=== PATIENT | female | born 1990 | race Caucasian/White ===

== ENCOUNTER → 2017-10-29 14:41 | Outpatient (CLI) | payer OTHER, SELFPAY ==
[2017-10-29 16:46] LABS: Thyroid Stim Hormone (TSH) 1.72 uIU/mL (0.358-3.74)
== END ==
PROVIDERS: Family Provider Family Medicine; PCP Family Medicine; Visit Provider Family Medicine
DX: E66.9 Obesity, unspecified (principal)
CPT/HCPCS: 36415; 84443

== ENCOUNTER → 2017-12-31 18:20 | Outpatient (CLI) | payer OTHER, SELFPAY ==
[2018-01-06 11:33] LABS: HPV Reflexed? NOT INDICATED
== END ==
PROVIDERS: Family Provider Family Medicine; PCP Family Medicine; Visit Provider Obstetrics & Gynecology
DX: Z12.4 Encounter for screening for malignant neoplasm of cervix (principal)
CPT/HCPCS: 88175; G0145

== ENCOUNTER → 2019-05-21 | Outpatient (CLI) | payer OTHER, SELFPAY ==
[2015-03-01 09:49] VITALS: BMI 33.7
[2019-05-26 09:52] LABS: HPV Reflexed? NOT INDICATED
== END | disposition home or self-care (01) ==
LOC: LABSPEC 13:53
PROVIDERS: Family Provider Family Medicine; PCP Family Medicine; Referring Provider Obstetrics & Gynecology; Visit Provider Obstetrics & Gynecology
DX: Z12.4 Encounter for screening for malignant neoplasm of cervix (principal)
CPT/HCPCS: 87624; 88175; G0145

== ENCOUNTER → 2019-07-08 14:00 | Outpatient (CLI) | payer OTHER, SELFPAY ==
[2019-07-08 14:13] LABS: Bacteria 0 SEEN /hpf (None Seen); Mucous, Urine 0 SEEN /hpf (<or=2+); Red Blood Cells-Urine 0 SEEN /hpf (0-5); White Blood Cells 0 SEEN /hpf (0-5)
[2019-07-08 14:26] LABS: Color, Urine Yellow (Yellow); Glucose, Dipstick Normal (Normal); Ketone-Dipstick Negative (Negative); Leukocyte Esterase-Dipstick Negative /ul (Negative); Nitrite-Dipstick Positive (Negative); Occult Blood-Urine Negative /ul (Negative); Protein-Dipstick Negative (Negative); Specific Gravity, Urine 1.005 (1.002-1.030); Urine Bilirubin Dipstick Negative (Negative); Urine Clarity Clear (Clear); Urine Urobilinogen Normal (Normal)
[2019-07-08 14:31] LABS: hCG Titer Quant., Serum < 1 mIU/mL (1-3)
[2019-07-08 14:41] LABS: Squamous Epithelial Cells - UA 0-5 SEEN /hpf (5-10)
== END ==
PROVIDERS: Family Provider Family Medicine; PCP Family Medicine; Visit Provider Advanced Practice Midwife
DX: O03.9 Complete or unspecified spontaneous abortion without complication (principal); R30.0 Dysuria
CPT/HCPCS: 36415; 81001; 84702; 87086; 87088

== ENCOUNTER → 2019-10-29 | Outpatient (CLI) | payer OTHER, SELFPAY ==
[2019-10-29 19:39] LABS: Chlamydia Trachomatis by PCR Negative (Negative); Neisserai gonorrhoeae by PCR Negative (Negative); Probe Check PASS; Sample Adequacy Control PASS; Specimen Processing Control PASS
== END | disposition home or self-care (01) ==
PROVIDERS: PCP Family Medicine; Referring Provider Obstetrics & Gynecology; Visit Provider Obstetrics & Gynecology
DX: Z11.3 Encounter for screening for infections with a predominantly sexual mode of transmission (principal)
CPT/HCPCS: 87491; 87591

== ENCOUNTER → 2019-11-24 11:43 | Outpatient (CLI) | payer SELFPAY ==
[2015-03-01 09:49] VITALS: BMI 33.7
[2019-11-24 13:48] LABS: Color, Urine Straw (Yellow); Glucose, Dipstick Normal (Normal); Ketone-Dipstick Negative (Negative); Leukocyte Esterase-Dipstick Negative /ul (Negative); Nitrite-Dipstick Negative (Negative); Occult Blood-Urine Negative /ul (Negative); Protein-Dipstick Negative (Negative); Urine Bilirubin Dipstick Negative (Negative); Urine Clarity Clear (Clear); Urine Urobilinogen Normal (Normal); Urine pH 6.5 (5.0 - 8.0)
[2019-11-24 13:50] LABS: Absolute Lymphocyte Count 2.53 X10^3/uL (0.83-4.51); Absolute Neutrophil Count 7.2 X10^3/uL (2.0-7.7); Basophil# 0.05 X10^3/uL; Basophil% 0.5 % (0-1); Eosinophil# 0.09 X10^3/uL; Eosinophils% 0.9 % (0-5); Hematocrit 39.4 % (37-47); Hemoglobin 13.3 g/dL (12.0-15.0); Lymphocyte # 2.53 X10^3/ul (4.0); Lymphocyte % 24.4 % (19-41); Mean Corp Hgb Conc 33.8 g/dL (32-36); Mean Corpuscular Volume 94.7 fL (81-99); Mean Platelet Vol. 13.8 fl (6.2-12.0); Monocyte# 0.53 X10^3/uL; Monocyte% 5.1 % (0-10); NRBC Flagged by Analyzer 0 % (0-5); Neutrophil # 7.15 X10^3/uL (2.7-7.7); Neutrophil % 68.7 % (47-70); Platelet Count 154 K/mm3 (150-450); RBC Distribution Width CV 11.8 % (11.6-14.6); RBC Distribution Width SD 40.6 fl (35.1-43.9); Red Blood Count 4.16 M/mm3 (4.2-5.4); White Blood Count 10.4 K/mm3 (4.4-11.0)
[2019-11-24 14:17] LABS: Thyroid Stim Hormone (TSH) 1.41 uIU/mL (0.358-3.74)
[2019-11-25 01:06] LABS: Prenatal RPR NONREACTIVE (NONREACTIVE)
[2019-11-25 10:16] LABS: HIV - WCH Non-Reactive (Nonreactive); Hepatitis B Surface Antigen Non-Reactive (Nonreactive); Hepatitis C Antibody Non-Reactive (Nonreactive); Rubella IgG 42.5 IU/mL
== END ==
PROVIDERS: PCP Family Medicine; Visit Provider Obstetrics & Gynecology
DX: Z34.81 Encounter for supervision of other normal pregnancy, first trimester (principal)
CPT/HCPCS: 36415; 81002; 84443; 85025; 86703; 86762; 86803; 87340

== ENCOUNTER → 2020-04-05 | Outpatient (CLI) | payer SELFPAY ==
[2015-03-01 09:49] VITALS: BMI 33.7
[2020-04-05 13:16] LABS: Hematocrit 36.2 % (37-47); Hemoglobin 11.9 g/dL (12.0-15.0); Mean Corp Hgb Conc 32.9 g/dL (32-36); Mean Corpuscular Volume 100.3 fL (81-99); Mean Platelet Vol. 13.9 fl (6.2-12.0); Platelet Count 142 K/mm3 (150-450); RBC Distribution Width SD 46.9 fl (35.1-43.9); Red Blood Count 3.61 M/mm3 (4.2-5.4); White Blood Count 10.7 K/mm3 (4.4-11.0)
[2020-04-05 13:22] LABS: Glucose Challenge Gest 1H 50g 118 mg/dL (70-140)
== END | disposition home or self-care (01) ==
LOC: WOBLAB 09:56
PROVIDERS: PCP Family Medicine; Visit Provider Obstetrics & Gynecology
DX: Z34.83 Encounter for supervision of other normal pregnancy, third trimester (principal)
CPT/HCPCS: 36415; 82950; 85027

== ENCOUNTER → 2020-04-18 17:48 | Outpatient (CLI) | payer MEDICARE, OTHER, SELFPAY | PROVIDERS: PCP Family Medicine; Visit Provider Obstetrics & Gynecology | DX: Z11.59 Encounter for screening for other viral diseases (principal) | CPT/HCPCS: 87635; G2023; U0003 ==

== ENCOUNTER → 2020-05-31 | Outpatient (CLI) | payer SELFPAY | END | disposition home or self-care (01) | PROVIDERS: PCP Family Medicine; Visit Provider Obstetrics & Gynecology | DX: Z36.85 Encounter for antenatal screening for Streptococcus B (principal) | CPT/HCPCS: 87081 ==

== ENCOUNTER 2020-06-22 07:05 | Inpatient (IN) | payer SELFPAY ==
[2015-03-01 09:49] VITALS: BMI 33.7
[2020-06-22] VITALS (24 sets, daily range): BP systolic 81–129; BP diastolic 43–82; PULSE 58–96; RESP 16; TEMP 36.3–37.5; O2SAT 97–99; BMI 34.5
[2020-06-22] MEDS: Lactated Ringers 1,000 ML 50 ML IV (07:25)
[2020-06-22] MEDS: Oxytocin 30 units/NS 500 ml 30 UNITS/500 ML IV.SOLN IV (07:45)
[2020-06-22 08:19] LABS: Absolute Lymphocyte Count 2.23 X10^3/uL (0.83-4.51); Basophil# 0.03 X10^3/uL; Basophil% 0.3 % (0-1); Eosinophils% 0.9 % (0-5); Hemoglobin 11.9 g/dL (12.0-15.0); Lymphocyte # 2.23 X10^3/ul (4.0); Lymphocyte % 20.1 % (19-41); Mean Corpuscular Hgb 33.1 pg (27.0-32.0); Mean Corpuscular Volume 97.5 fL (81-99); Mean Platelet Vol. 14.1 fl (6.2-12.0); Monocyte# 0.66 X10^3/uL; Monocyte% 5.9 % (0-10); NRBC Flagged by Analyzer 0 % (0-5); Neutrophil # 8.04 X10^3/uL (2.7-7.7); Neutrophil % 72.3 % (47-70); Platelet Count 126 K/mm3 (150-450); RBC Distribution Width CV 13.1 % (11.6-14.6); RBC Distribution Width SD 46.5 fl (35.1-43.9); Red Blood Count 3.59 M/mm3 (4.2-5.4); White Blood Count 11.1 K/mm3 (4.4-11.0)
--- NOTE | 2020-06-22 08:57 | HP.PCM_ITS ---
History and Physical Date of Admission: 06/22/20 [facility] [place] ANTEPARTUM RECORD - HISTORY AND PHYSICAL (06/22/2020) Name: BARBARA BARROSO History of This : This is a 29-year-old who presents for elective induction at 39+ weeks gestation. care has otherwise been uneventful. OB Physician: ORBERT [facility]'s Physician: [facility] ...................................................................... : 1990 Age: 29 Address: [address] [place] [address] Phone: (h) [phone] (o) [phone] Insurance Carrier: Emergency Contact: OSVALDO RED - SISTER [phone] ...................................................................... Final YARELY: 06/26/20 By Ultrasound: 9 weeks 2 days PARITY: (G-Total Pregnancies P-Fullterm,Premature,Induced AB,Spont AB, Ectopics, Multipl e,Living) YARELY CONFIRMATION: By LMP: 09/20/19 Initial Exam: 06/26/20 By First Ultrasound Exam: 06/26/20 Final YARELY: 06/26/20 OB PROBLEM LIST: Declines AFP and CF testing. COVID positive 04/18/20; sxs have resolved First cousin with Down Syndrome Prefers no epidural, but not opposed if needed ALLERGIES: Amoxicillin Hives and/or rash amoxicillin trihydrate Hives, rash NKDA MEDICATIONS: azithromycin 250 mg tablet 2 po today then 1 po daily fluoxetine 20 mg capsule One pill by mouth once a day One Daily 27 mg iron-800 mcg tablet daily SOCIAL HISTORY: Smoking - Never Alcohol Use - denies drinking Diet - moderate, balanced diet, caffeine < 2 drinks per day and lactose intolerant Lifestyle - Exercise - active work Employer - 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 Drug Use - denies use of street drugs Sexual Activity - Residence - lives with Place of - [place], [place] Hours Worked - 30 wk Spouse-Sig Other Name - Tigist Barroso Spouse-Sig Other Occupation - Family Farm Spouse-Sig Other Phone No - [phone] Children Name(s) - Abhijit(13), Joe(15) PRIOR DELIVERY HISTORY ____ DEL DATE GEST LAB WT LB WT OZ TYPE ANES LABOR TX Mar 13 39 8 8 3 Vag Epidural No Dec 09 40 5 8 3 Vag Epidural No ANTEPARTUM FLOW CHART VISIT GE RTC FU F F DE U U DATE WK MD WKS HT PN HR M SS BP ED WT DE GL D EF ST __ ____ ___ __ __ ___ __ __ __ ___ __ __ __ ___ __ 16 Sep 38 JMW 1 38 V + + 122/74 sl 220 - - 2+ 75 -2 09 May 37 JMW 1 37 V + + 126/80 sl 217 - - S 02 Sep 36 JMW 1 36 V + + 132/78 sl 215 tr - 2 50 -2 Apr JMW 3 33 + + 106/68 0 213 - - 08 Apr 25 JMW 4 28 + + 134/64 sl 209 tr - 11 Mar 22 JMW 4 24 + + 126/70 0 205 tr - 14 February 15 JMW 4 20 U+ O 124/76 0 200 - - Nov 07 JMW 4 on 119/77 0 191 - - ANTEPARTUM NOTE(S): Jun 14 2020: Ctxs-occas, Periodic pains in upper and lower abdomen Jun 07 2020: Ctxs-occas, Good FM May 31 2020: Alot of low soreness,Good FM,GBS Today May 10 2020: no complaints expressed Apr 05 2020: CBC, OGCT Today,Good FM,Feeling Well Mar 09 2020: Glucola/Instructions Given,Good FM,Feeling Well February 09 2020: Comp US -- Anterior Placenta Nov 24 2019: Intermittent nausea COMPREHENSIVE ANTEPARTUM NOTE(S): Jun 14 2020: Scheduled for Induction for 06/22 at 0700. Spoke with Lidia KAY. ЕКАТЕРИНА May 31 2020: Barbara reports a lot of soreness low in her abdomen recently, we discussed round ligament pains. Good FM. LARC form signed and GBS Today. ЕКАТЕРИНА May 10 2020: Barbara is here for a PNV. Good FM. No edema noticed. No complaints or concerns expressed. Informed about GBS and LARC at 36 week visit. 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 Reviewed FM perception w/Anterior placenta. Nov 24 2019: Barbara is here for her NOB visit at 9 w 2 d, she is a with an YARELY of 06/26/2020. , Shon, accompanies her today, and she seems to be supportive. They have two sons at home, both delivered by in 2012 and 2014. Past history updated. Barbara plans delivery at [facility], she prefers not to have an epidural (but is not opposed to one, if needed), and she will breastfeed. Office practice patterns reviewed, and she is aware of labs that will be collected today. She has been experiencing intermittent nausea, and states that she has vomited once. Reviewed measures that may help minimize nausea, including small frequent meals with protein included throughout the day and adequate water hydration of at least one gallon per 24 hours, also discussed Vitamin B6 50 mg twice a day and Unisom at bedtime. Barbara takes an OTC vitamin that contains DHA and states that she tolerates this well. Emergencies/danger signs to report, round ligament pain, reporting a suspected UTI, and common OTC medications approved/not approved for use during reviewed. Genetic Screen completed, she has a first cousin with Down Syndrome. AFP and CF testing declined, consent signed as such. Barbara is a lifelong non-smoker, and denies use of drugs or ETOH. She keeps active helping on the [employer] farm every day, and taking walks. Lifting restrictions for discussed. Water and dietary needs for reinforced, including caloric needs, recommended weight gain, limiting caffeine to one cup a day, and limiting empty calories. Printed guide for food safety during provided with review. Denies history of depression/anxiety. Barbara states that she understands all information provided during NOB visit, and has no questions following same. AW New Oct 29 2019: ok Oct 29 2019: Barbara presents here today for Missed Menses appointment. 28 y.o. G 3 P 2 non-smoker with history of regular menses and LMP of 12-23-19 lasting her average of 5-6 days. UPT mis positive today in our Office. Presents at 5 weeks 4 days with an approximate YARELY of 06-27-20. Denies spotting/bleeding thus far with brief review of danger signs and bleeding in . Currently taking an OTC Vitamin with Educational Materials given. History of all normal pap screenings from 2012 through 05/2019. Medication and Allergy lists up- dated. ЕКАТЕРИНА Jul 13 2019: Pt reports urethural pain and burning, and urinary frequency, urgency, and a sense of not being able completely empty her bladder. She took several pill from an old Macrobid rx two days ago, and several pills from an old Pyridium rx; she has had some unscheduled vaginal bleeding, now resolved, which she believes may have been an eary miscarriage. She denies cramping at any time. UA C sent today; HcG Quant < 1 today; Rx for Macrobid and Pyridium given, hygeine measures, fluids reviewed, pt may consider cranberry juice or tablets, and probiotic, albeit limited evidence for efficacy. Pt wants to activly attempt , reassured her it is safe to try at this time. Pt encouraged to call if s/s do not improve. - KVW Jul 08 2019: Barbara is being seen for folllow up visit. Pt called into triage today with bleeding and possible UTI. LMP 05-24-19. Pt bled for 7 days and then started bleeding 07-01-19 which was alot shorter. Pt is concerned this is a missed AB due to 3 tests done and were positive around 06-22-19. Pt has been having bladder spasms and burning with urination. Pt is taking Pyridium and 4 tabs of Macrobid from last UTI she had. Urine cx sent as well as quant drawn. Medicaitons and allergies are up to date. AM REVIEW OF SYSTEMS: GENERAL - Denies fever, or chills SKIN - Denies rash, new skin lesions, or change in moles EYES - Denies blurred vision, or change in visual acuity EARS - Denies ear pain, or difficulty hearing NOSE - Denies nasal congestion, discharge, or bleeding MOUTH - Denies sore throat, or difficulty swallowing NECK - Denies pain or swelling RESPIRATORY - Denies shortness of breath, cough, wheezing CARDIOVASCULAR - Denies palpitations, chest pain, orthopnea, PND, peripheral edema, syncope or claudication GASTROINTESTINAL - Denies nausea, vomiting, diarrhea, constipation, Denies abdominal pain, melena and or bright red blood GENITOURINARY - Denies dysuria, frequency of urination, urgency, or hesitancy MUSCULOSKELETAL - Denies joint or muscle pain, or back pain NEUROLOGICAL - Denies localized numbness, weakness, or tingling PSYCHIATRIC - Denies depression, anxiety, substance abuse or suicide attempts ENDOCRINE - Denies heat or cold intolerance, weight loss or gain, increasing thirst HEMATO-IMMUNOLOGIC - Denies easy bruising, bleeding, oral ulcerations or recurrent infections GENETICS SCREENING: Age 35+ years: No Thalassemia: No Neural Tube Defect: No Down Syndrome: Yes Cousin GLEN-SACHS: No Sickle Cell Disease: No Hemophilia: No Musc. Dystrophy: No Cystic Fibrosis: No-declines screening Valmy Chorea: No Mental Retardation: No Fragile X: No Other genetic: No Other defects: No SABs/still births: No Drugs since LMP: No INFECTION HISTORY: High risk AIDS: No High risk Hepatitis: No Exposed to TB: No Exposed to Herpes: No Rash/viral illness since LMP: No History of STD: No MENSTRUAL HISTORY: *Menses Amount/Duration: 5-6 DAYSMenses Regularity: RegularFrequency: monthlyMenarche (Age Onset): 13HCG+: 03/25/2012* PAST SUMMARY: PARITY: 1. Total Pregnancies............ 3 2. Full Term Pregnancies........ 2 3. Premature.................... 0 4. Abortions - Induced.......... 0 5. Abortions - Spontaneous...... 0 6. Ectopics..................... 0 7. Multiple Births.............. 0 8. Living Children.............. 2 PAST #1: Date of :.................. 12/04/12 Gestation Weeks:................ 40 Length of labor(hours):......... 5 Sex:............................ M Weight-lbs:............... 8 Weight-oz:................ 3 Type of Delivery:............... Vag Type of Anesthesia:............. Epidural Place of Delivery:.............. [facility] Treatment of Labor?:.... No Comment: IND. PAST #2: Date of :.................. 03/01/15 Gestation Weeks:................ 39 Length of labor(hours):......... 8 Sex:............................ M Weight-lbs:............... 8 Weight-oz:................ 3 Type of Delivery:............... Vag Type of Anesthesia:............. Epidural Place of Delivery:.............. [facility] Treatment of Labor?:.... No Comment: IOL PHYSICAL EXAMINATION General Appearence: 29 yo female in no acute distress Vital Signs: AF, VSS Heart: RRR without rubs or gallops Lungs: CTA x 2 Breasts: deferred Abdomen: gravid Pelvis: Cervix: 3/50, rupture membranes clear fluid Presentation: cephalic Station: -2 Fetus: Size: AGA Movement: present Heart: present Labs for : BARBARA BARROSO since 09/30/2019 ORDER DATEIN DESCRIPTION VALUE UNITS RANGE A+ COMMENT CULTURE, GROUP B STREPTOCOCCUS 05/31/20 NOTE Original Ordering Provider: Pablito Doherty SUZIE Culture No Group B Beta Streptococcus isolated. Reviewed by PABLITO CORONAVIRUS 19, THERESE SCREEN 04/18/20 NOTE Original Ordering Provider: DOMONIQUE Diamond COVID-19,THERESE Detected Not Detect This test was developed and its performance characteristics determined by [facility]. This test has not been FDA cleared or approved. This test has been authorized by FDA under an Emergency Use Authorization (EUA). This test is only authorized for the duration of time the declaration that circumstances exist justifying the authorization of the emergency use of in vitro diagnostic tests for detection of SARS-CoV-2 virus and/or diagnosis of COVID-19 infection under section 564(b)(1) of the Act, 21 U.S.C. 360bbb-3(b)(1), unless the authorization is terminated or revoked sooner. When diagnostic testing is negative, the possibility of a false negative result should be considered in the context of a patient's recent exposures and the presence of clinical signs and symptoms consistent with COVID-19. An individual without symptoms of COVID-19 and who is not shedding SARS-CoV-2 virus would expect to have a negative (not detected) result in this assay. TESTING PERFORMED AT [facility]. [address] [facility], [place] [address] ORIGINAL REPORT ON FILE IN LAB CONTAINS ADDITIONAL TEST SITE INFORMATION. Reviewed by PABLITO GLUCOSE CHALLENGE GEST 1H 50G 04/05/20 NOTE Original Ordering Provider: Pablito Doherty GLU GEST 50G 1H 118 mg/dL 70-140 Reviewed by PABLITO CBC-COMPLETE BLOOD CNT NO DIFF 04/05/20 NOTE Original Ordering Provider: Pablito Doherty WBC 10.7 K/mm3 4.4-11.0 RBC 3.61 M/mm3 4.2-5.4 L HGB 11.9 g/dL 12.0-15.0 L HCT 36.2 % 37-47 L MCV 100.3 fL 81-99 H MCH 33.0 pg 27.0-32.0 H MCHC 32.9 g/dL 32-36 RDW CV 13.0 % 11.6-14.6 RDW SD 46.9 fl 35.1-43.9 H PLT 142 K/mm3 150-450 L MPV 13.9 fl 6.2-12.0 H Reviewed by PABLITO HEPATITIS C ANTIBODY 11/24/19 NOTE Original Ordering Provider: Pablito Doherty HEPATITIS C AB Non-Reactive Nonreactive Non Reactive: < 0.8 Equivocal: >/= 0.8 to < 1.0 Reactive: >/= 1.0 The CDC recommends that a reactive/equivocal HCV antibody result be followed up by the HCV Nucleic Acid Amplification test ([id number]) Reviewed by JEOVANY HEPATITIS B SURFACE ANTIGEN 11/24/19 NOTE Original Ordering Provider: Pablito Doherty HEPB SURFACE AG Non-Reactive Nonreactive Reviewed by JEOVANY HIV - H 11/24/19 NOTE Original Ordering Provider: Pablito Doherty HIV - [facility] Non-Reactive Nonreactive Reviewed by JEOVANY RUBELLA IGG 11/24/19 NOTE Original Ordering Provider: Pablito Doherty RUBELLA IGG 42.5 IU/mL Antibody results Interpretation of Immune Status < 5 IU/ml Presumed Non-immune 5 - < 10 IU/ml Equivocal > or = 10 IU/ml Presumed Immune Reviewed by JEOVANY RPR 11/24/19 NOTE Original Ordering Provider: Pablito Doherty RPR NONREACTIVE NONREACTIVE Reviewed by JEOVANY T AND S-NO CHARGE W/PNP 11/24/19 Reason for Type AND Screen/Red Cells: Surgery? [facility]~[address] [place], [address]~ BLOOD TYPE GEL O POSITIVE N AB SCREEN GEL NEGATIVE N Reviewed by JEOVANY THYROID STIM HORMONE (TSH) 11/24/19 NOTE Original Ordering Provider: Pablito Doherty TSH 1.41 uIU/mL 0.358-3.74 Reviewed by JEOVANY jones CBC W/DIFF, AUTOMATED 11/24/19 NOTE Original Ordering Provider: Pablito Doherty WBC 10.4 K/mm3 4.4-11.0 RBC 4.16 M/mm3 4.2-5.4 L HGB 13.3 g/dL 12.0-15.0 HCT 39.4 % 37-47 MCV 94.7 fL 81-99 MCH 32.0 pg 27.0-32.0 MCHC 33.8 g/dL 32-36 RDW CV 11.8 % 11.6-14.6 RDW SD 40.6 fl 35.1-43.9 PLT 154 K/mm3 150-450 MPV 13.8 fl 6.2-12.0 H NEUT% 68.7 % 47-70 LY% 24.4 % 19-41 MONO% 5.1 % 0-10 EO% 0.9 % 0-5 BASO% 0.5 % 0-1 IM GRAN % 0.400 % 0.0-0.9 IG% - Immature Granulocytes (promyelocytes, myelocytes and metamyelocytes) > 1% indicates that a LEFT SHIFT is Present. ABSOLUTE NEUT 7.2 X10 3/uL 2.0-7.7 ABSOLUTE LYMPH 2.53 X10 3/uL 0.83-4.51 NRBC, FLAGGED 0 % 0-5 Reviewed by JEOVANY URINALYSIS, ROUTINE (DIPSTICK) 11/24/19 NOTE Original Ordering Provider: Pablito Doherty COLOR Straw Yellow CLARITY Clear Clear GLUCOSE, UR Normal mg/dl Normal BILIRUBIN URINE Negative mg/dL Negative KETONE UR Negative mg/dl Negative w SP.GR. DIPSTX 1.010 1.002-1.030 PH UR 6.5 5.0 - 8.0 PROT DIPSTX Negative mg/dl Negative UROBILI Normal mg/dl Normal w NITRITE UR Negative Negative OCCULT BLOOD-UR Negative /ul Negative LEUK ESTERASE Negative /ul Negative Reviewed by JEOVANY CT/NG [facility] BY PCR 10/29/19 NOTE Original Ordering Provider: Pablito Doherty CHLAM TRA PCR Negative Negative NG BY PCR Negative Negative Reviewed by PABLITO Impression /Plan: 39+ week intrauterine for elective Pitocin and rupture membrane induction. Preparations in progress for delivery.
[2020-06-22] MEDS: Lactated Ringers 500 ML 999 ML IV (12:13)
[2020-06-22] MEDS: Amnioinfusion- 0.9% NS 1,000 ML IV.SOLN. 200 ML INTRA-UTER (13:30)
[2020-06-22] MEDS: Oxytocin 30 units/NS 500 ml 30 UNITS/500 ML IV.SOLN 334 UNITS IV (14:16)
--- NOTE | 2020-06-22 14:25 | PCM.OPRPT ---
Vaginal Delivery Maternal Presentation: Elective Induction Method of Induction: Pitocin, Amniotomy Amniotic Membrane Rupture Type: Artificial Amniotic Fluid Description: Clear Final YARELY: 06/26/20 Final YARELY Source: US <20 weeks Gestational age: 39 Weeks and 3 Days Date of Procedure: 06/22/20 Pre-Operative Diagnosis: IUP Post-Operative Diagnosis: IUP Surgery/ Procedure Performed: Spontaneous Vaginal Delivery Type of Anesthesia: None Description of Procedure: Spontaneous vaginal delivery of a viable male with Apgars of 8/9 from an occiput anterior presentation with clear amniotic fluid and normal three-vessel placenta. No episiotomy or lacerations. Sponges okay. Delivery physician: Tommie Doherty MD. Presentation: Vertex Placental Delivery Description: Spontaneous Placenta Disposition: [facility] Cord Vessel Description: 3 Vessels Cord Entanglement: None Estimated Blood Loss: 250 cc A gender: Male (1 minute): 8 (5 minute): 9 Episiotomy Description: None Laceration: None Medications given after delivery: IV Pitocin Complications: None
--- NOTE | 2020-06-22 14:27 | DCINST_ITS ---
<Tommie Doherty - Last Filed: 06/22/20 14:27> Discharge Diet: No Restrictions Discharge Activity: May Shower, May Take a Tub Bath May resume sexual activity in: 4-6 weeks Additional Activity Instructions:: Nothing in the vagina for 4-6 weeks. You may return to work/school in 6 weeks. Call your doctor if you observe: Inability to urinate, Inability to have a bowel movement, Using more than one pad per hour Additional Instructions: If you experience any of the following, contact your healthcare provider. * Bleeding that soaks a pad every hour for 2 hours * Fever 100.4 or higher * Unrelieved incision or abdominal pain * Swelling, redness, discharge or bleeding from your incision or episiotomy site * Your incision begins to separate * Problems urinating (including inability to urinate or burning while urinating). * Visual changes * Severe headache * Flu-like symptoms * Pain or redness in one of both of your breasts * Pain, warmth, tenderness or swelling in your legs, especially the calf area * Frequent nausea and vomiting * Symptoms of depression or anxiety If you experience any of the following, call 911 or go to the nearest Emergency Room. * Chest pain * Problems breathing * Seizure activity * Partial or complete paralysis of a body part, slurred speech, weakness or drooping of the face, or a sudden inability to walk or hold your balance Allergies/Adverse Reactions: Allergies amoxicillin Adverse Reaction (Verified 12/28/14 15:59) Rash Medications to take at Discharge Vits [Prenatabs FA] 1 tablet PO DAILY 12/28/14 Mecobalamin [B12 Active] 1,000 mcg PO DAILY 06/22/20 Please Follow Up With: Tommie Doherty MD - [phone] When: Call to make an appointment with your doctor in 6 weeks. Primary Care Physician: Susu Dove MD [Primary Care Provider] - Test Results: Test results from this visit will be discussed in further detail at your follow- up appointment, if applicable. <Alex Flower - Last Filed: 06/23/20 08:12> Additional Instructions: If you experience any of the following, contact your healthcare provider. * Bleeding that soaks a pad every hour for 2 hours * Fever 100.4 or higher * Unrelieved incision or abdominal pain * Swelling, redness, discharge or bleeding from your incision or episiotomy site * Your incision begins to separate * Problems urinating (including inability to urinate or burning while urinating). * Visual changes * Severe headache * Flu-like symptoms * Pain or redness in one of both of your breasts * Pain, warmth, tenderness or swelling in your legs, especially the calf area * Frequent nausea and vomiting * Symptoms of depression or anxiety If you experience any of the following, call 911 or go to the nearest Emergency Room. * Chest pain * Problems breathing * Seizure activity * Partial or complete paralysis of a body part, slurred speech, weakness or drooping of the face, or a sudden inability to walk or hold your balance Test Results: Test results from this visit will be discussed in further detail at your follow- up appointment, if applicable.
[2020-06-22] MEDS: Ibuprofen 600 MG Tablet PO (15:37)
[2020-06-22] MEDS: 0.9% Saline Lock 10 ML Syringe IV (16:45)
[2020-06-22] MEDS: Acetaminophen 500 MG Tablet 1000 MG PO (20:09)
[2020-06-23] VITALS (10 sets, daily range): BP systolic 117–143; BP diastolic 63–74; PULSE 67–85; RESP 14–18; TEMP 36.2–36.8; O2SAT 95–96
[2020-06-23] MEDS: Acetaminophen 500 MG Tablet 1000 MG PO (06:39)
--- NOTE | 2020-06-23 08:10 | PCM.PN.OB ---
Subjective: No overnight complaints. Pain well controlled. Denies chest pain, shortness of breath, nausea vomiting. - Physical Exam Vitals/I&O's: Vital Signs Temp Pulse Resp BP Pulse Ox 97.4 F L 77 18 133/74 H 96 06/23/20 08:00 06/23/20 08:00 06/23/20 08:00 06/23/20 08:00 06/23/20 08:00 Oxygen Delivery Method Room Air Weight: 220 lb 7.396 oz Body Mass Index (BMI) 34.5 Intake and Output for Last 24 Hours 06/21/20 06/22/20 06/23/20 23:59 23:59 23:59 Intake Total 1593.30 / 1593.30 Output Total 1300 / 1300 Balance 293.30 / 293.30 General: Alert, Oriented x3, Cooperative, No apparent distress HEENT: Atraumatic, Normocephalic Oral: Moist Mucosa Neck: Supple Abdomen: Soft, Non Tender, Gravid - Fundus firm at umbilicus Psych/Mental Status: Normal Affect, Appropriate, Alert and oriented to time, place, person, mood and affect Laboratory Results 06/22/20 07:25: WBC 11.1 H, RBC 3.59 L, Hgb 11.9 L, Hct 35.0 L, MCV 97.5, MCH 33.1 H, MCHC 34.0, RDW Std Deviation 46.5 H, RDW Coeff of Adriana 13.1, Plt Count 126 L, MPV 14.1 H, Immature Gran % (Auto) 0.500, Neut % (Auto) 72.3 H, Lymph % (Auto) 20.1, [place] % (Auto) 5.9, Eos % (Auto) 0.9, Baso % (Auto) 0.3, Absolute Neuts (auto) 8.0 H, Absolute Lymphs (auto) 2.23, Nucleated RBC % 0 06/22/20 07:25: Blood Type O POSITIVE, Antibody Screen NEGATIVE Current Medications Acetaminophen (Tylenol) 1,000 mg PO Q8H PRN PRN PRN Reason: Pain Score 1-3/10 Last Admin: 06/23/20 06:39 Dose: 1,000 mg Documented by: Bisacodyl (Dulcolax) 10 mg RECTAL UD PRN PRN Reason: If no BM Dibucaine (Dibucaine) 1 applic TOPICAL TID PRN PRN; Protocol PRN Reason: Discomfort Hydrocortisone (Hytone) 1 applic TOPICAL TID PRN PRN; Protocol PRN Reason: Discomfort Ibuprofen (Motrin) 600 mg PO Q6H PRN PRN PRN Reason: Pain Score 1-3/10 Last Admin: 06/22/20 15:37 Dose: 600 mg Documented by: Influenza Virus Vaccine Quadrival (Flucelvax /Fluzone ) 0.5 ml IM .ONCE ONE Stop: 06/23/20 10:01 Methylergonovine Maleate (Methergine) 0.2 mg IM X1 PRN PRN Reason: Excess bleeding/uterine atony Ondansetron HCl (Zofran) 4 mg IV Q4H PRN PRN PRN Reason: Nausea Oxycodone HCl (Oxyir) 5 - 10 mg PO Q4H PRN PRN PRN Reason: Pain Score 4-10/10 Senna/Docusate Sodium (Senokot-S, Linda-Colace) 1 - 2 tablet PO DAILY PRN PRN PRN Reason: Constipation Simethicone (Mylicon) 80 mg PO PCHS PRN PRN Reason: Indigestion/Stomach pain Sodium Chloride () 5 - 15 ml IV UD PRN PRN Reason: SALINE FLUSH Last Admin: 06/22/20 16:45 Dose: 10 ml Documented by: Zolpidem Tartrate (Ambien (Generic)) 5 mg PO QHS PRN PRN PRN Reason: Insomnia Medical Necessity - Tobacco Use Smoking Status: Never smoker Assessment/Plan day 1. Pain well controlled. Breast-feeding. Undecided on control, considering progesterone only pill at visit. Okay to [place] home today
== END 2020-06-23 15:15 | disposition home or self-care (01) | DRG 807 ==
PROVIDERS: Admitting Provider Obstetrics & Gynecology; PCP Family Medicine; Visit Provider Obstetrics & Gynecology
DX: O80 Encounter for full-term uncomplicated delivery (principal); Z37.0 Single live birth; Z3A.39 39 weeks gestation of pregnancy
CPT/HCPCS: 59025; 59050; 85025; 86850; 86900; 86901; 99218; J7030; J7120; 90686; A4216; G0378

== ENCOUNTER → 2021-03-09 10:11 | Outpatient (CLI) | payer SELFPAY ==
[2020-06-22 07:17] VITALS: BMI 34.5
[2021-03-09 11:17] LABS: Absolute Lymphocyte Count 2.11 X10^3/uL (0.83-4.51); Basophil# 0.06 X10^3/uL; Basophil% 0.7 % (0-1); Eosinophil# 0.15 X10^3/uL; Eosinophils% 1.7 % (0-5); Hematocrit 37.5 % (37-47); Hemoglobin 12.7 g/dL (12.0-15.0); Lymphocyte # 2.11 X10^3/ul (0.83-4.51); Mean Corp Hgb Conc 33.9 g/dL (32-36); Mean Corpuscular Hgb 32.1 pg (27.0-32.0); Mean Corpuscular Volume 94.7 fL (81-99); Mean Platelet Vol. 12.5 fl (6.2-12.0); Monocyte# 0.45 X10^3/uL; Monocyte% 5.1 % (0-10); NRBC Flagged by Analyzer 0 % (0-5); Neutrophil % 68.3 % (47-70); Platelet Count 182 K/mm3 (150-450); RBC Distribution Width CV 11.9 % (11.6-14.6); RBC Distribution Width SD 41.3 fl (35.1-43.9); Red Blood Count 3.96 M/mm3 (4.2-5.4); White Blood Count 8.8 K/mm3 (4.4-11.0)
[2021-03-09 11:58] LABS: Thyroid Stim Hormone (TSH) 2.33 uIU/mL (0.358-3.74)
[2021-03-09 12:13] LABS: Color, Urine Yellow (Yellow); Glucose, Dipstick Normal (Normal); Ketone-Dipstick Negative (Negative); Leukocyte Esterase-Dipstick Negative /ul (Negative); Nitrite-Dipstick Negative (Negative); Occult Blood-Urine Negative /ul (Negative); Protein-Dipstick Negative (Negative); Urine Bilirubin Dipstick Negative (Negative); Urine Clarity Clear (Clear); Urine Urobilinogen Normal (Normal)
[2021-03-09 12:27] LABS: HIV - WCH Non-Reactive (Nonreactive); Hepatitis B Surface Antigen Non-Reactive (Nonreactive); Hepatitis C Antibody Non-Reactive (Nonreactive); Rubella IgG Reactive (Nonreactive); Syphilis Antibodies Non-reactive
[2021-03-11 20:07] LABS: Chlamydia By Nucleic Acid AMP Negative (Negative)
[2021-03-12 08:30] LABS: Gonococcus By Nucleic Acid AMP Negative (Negative)
== END ==
PROVIDERS: PCP Family Medicine; Visit Provider Obstetrics & Gynecology
DX: Z34.81 Encounter for supervision of other normal pregnancy, first trimester (principal); Z11.3 Encounter for screening for infections with a predominantly sexual mode of transmission
CPT/HCPCS: 81002; 84443; 85025; 86703; 86762; 86780; 86803; 87340; 87491; 87591

== ENCOUNTER → 2021-07-18 09:57 | Outpatient (CLI) | payer SELFPAY ==
[2021-07-18 12:19] LABS: Glucose Challenge Gest 1H 50g 133 mg/dL (70-140); Hematocrit 34.2 % (37-47); Hemoglobin 11.4 g/dL (12.0-15.0); Mean Corp Hgb Conc 33.3 g/dL (32-36); Mean Corpuscular Hgb 32.9 pg (27.0-32.0); Mean Corpuscular Volume 98.8 fL (81-99); Mean Platelet Vol. 13.3 fl (6.2-12.0); Platelet Count 139 K/mm3 (150-450); RBC Distribution Width CV 13.1 % (11.6-14.6); RBC Distribution Width SD 46.8 fl (35.1-43.9); Red Blood Count 3.46 M/mm3 (4.2-5.4); White Blood Count 11.1 K/mm3 (4.4-11.0)
== END ==
PROVIDERS: PCP Family Medicine; Visit Provider Obstetrics & Gynecology
DX: Z34.83 Encounter for supervision of other normal pregnancy, third trimester (principal)
CPT/HCPCS: 36415; 82950; 85027

== ENCOUNTER 2021-09-07 19:50 | Outpatient (CLI) | payer SELFPAY ==
[2021-09-07 20:09] VITALS: BP 138/74; PULSE 60
[2021-09-07 20:59] VITALS: BP 124/67; PULSE 67
[2021-09-07 21:14] LABS: ROM Internal Control Test YES-OK TO RESULT pt. (Internal QC); ROM Patient Test Negative (Negative)
[2021-09-07 21:27] VITALS: BMI 35.6
--- NOTE | 2021-09-07 21:49 | OB.TRI.NOTE ---
HPI - General HPI Narrative GLORIA BARROSO, is a 30 F who presents at 36 1/7 wga with c/o leaking of fluid vaginally/. PFSH PFSH Medical History (Updated 10/02/21 @ 08:[address] Magi Garcia MD) Anxiety Depression Family history of hearing loss at age younger than 7 years depression Home Medications Prenatabs FA 1 tab PO DAILY 12/28/14 [History Last Taken 09/26/21 07:00] fluoxetine 40 mg PO DAILY 09/07/21 [History Last Taken 09/27/21 07:00] ibuprofen 600 mg PO Q6H PRN PRN #30 tab 09/28/21 [Rx Last Taken Unknown] Allergy/AdvReac Type Severity Reaction Status Date / Time amoxicillin AdvReac Rash Verified 09/07/21 20:14 Surgical History (Updated 09/27/21 @ 07:59 by Ling Alex) History of surgery Social History Smoking Status: Never smoker History Elective abortions Hx Para 3 Spontaneous abortions Hx # Term Pregnancies Ectopic pregnancies Hx # Pregnancies Multiple births # of living children NST FHR Rate Baby A Baseline: 130 Variability:: Moderate Accelerations:: 15 x 15 Decelerations:: None NST Reactive:: Yes FHR Category:: Category I Uterine Activity:: 0/10 Assessment & Plan (1) False labor before 37 completed weeks of gestation: QUALIFIERS: Trimester: third trimester Qualified Code(s): O47.03 - False labor before 37 completed weeks of gestation, third trimester
== END 2021-09-07 21:40 | disposition home or self-care (01) ==
LOC: WPOUT 20:01 → WP 20:01
PROVIDERS: PCP Family Medicine; Visit Provider Obstetrics & Gynecology
DX: O47.03 False labor before 37 completed weeks of gestation, third trimester (principal); O99.343 Other mental disorders complicating pregnancy, third trimester; F41.9 Anxiety disorder, unspecified; Z79.899 Other long term (current) drug therapy; Z3A.36 36 weeks gestation of pregnancy
CPT/HCPCS: 59025; 59050; 84112; 99218; G0378

== ENCOUNTER → 2021-09-12 | Outpatient (CLI) | payer SELFPAY | END | disposition home or self-care (01) | LOC: LABSPEC 10:28 | PROVIDERS: PCP Family Medicine; Visit Provider Obstetrics & Gynecology | DX: Z36.85 Encounter for antenatal screening for Streptococcus B (principal) | CPT/HCPCS: 87081 ==

== ENCOUNTER 2021-09-27 06:55 | Inpatient (IN) | payer SELFPAY ==
[2021-09-27] VITALS (26 sets, daily range): BP systolic 121–146; BP diastolic 63–88; PULSE 53–112; RESP 18; TEMP 36.4–36.7; O2SAT 96–99; BMI 37.3
[2021-09-27] MEDS: Lactated Ringers 1,000 ML 50 ML IV (07:50)
[2021-09-27 08:05] LABS: Absolute Lymphocyte Count 2.38 X10^3/uL (0.83-4.51); Absolute Neutrophil Count 6.3 X10^3/uL (2.0-7.7); Basophil# 0.02 X10^3/uL; Basophil% 0.2 % (0-1); Eosinophil# 0.07 X10^3/uL; Eosinophils% 0.7 % (0-5); Hematocrit 35.6 % (37-47); Hemoglobin 12.1 g/dL (12.0-15.0); Lymphocyte # 2.38 X10^3/ul (0.83-4.51); Lymphocyte % 25.4 % (19-41); Mean Corpuscular Hgb 32.5 pg (27.0-32.0); Mean Corpuscular Volume 95.7 fL (81-99); Mean Platelet Vol. 14.3 fl (6.2-12.0); Monocyte# 0.55 X10^3/uL; Monocyte% 5.9 % (0-10); NRBC Flagged by Analyzer 0 % (0-5); Neutrophil # 6.32 X10^3/uL (2.7-7.7); Neutrophil % 67.4 % (47-70); Platelet Count 128 K/mm3 (150-450); RBC Distribution Width CV 12.7 % (11.6-14.6); Red Blood Count 3.72 M/mm3 (4.2-5.4); White Blood Count 9.4 K/mm3 (4.4-11.0)
[2021-09-27] MEDS: Oxytocin 30 units/NS 500 ml 30 UNITS/500 ML IV.SOLN IV (08:46)
--- NOTE | 2021-09-27 09:38 | PCM.HP.BLA ---
History and Physical Date of Admission: 09/27/21 ACOG ANTEPARTUM RECORD - HISTORY AND PHYSICAL (09/27/2021) Name: BARBARA BARROSO History of this : This is a 30 year old [id number] presents at 39 wks + 0 days gestation for elective induction. OB Physician: Tommie Doherty MD 's Physician: [facility] ...................................................................... : 1990 Age: 30 Address: [address] [place] [address] Phone: (h) [phone] (o) [phone] Insurance Carrier: Emergency Contact: OSVALDO RED - SISTER [phone] ...................................................................... Final YARELY: 10/04/21 By Ultrasound: 9 weeks 2 days PARITY: (G-Total Pregnancies P-Fullterm,Premature,Induced AB,Spont AB, Ectopics, Multiple,Living) YARELY CONFIRMATION: By LMP: 09/20/19 Initial Exam: 10/04/21 By First Ultrasound Exam: 10/04/21 Final YARELY: 10/04/21 OB PROBLEM LIST: ALLERGIC TO AMOXICILLIN! 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 Drug Use - denies use of street drugs Sexual Activity - Residence - lives with Place of - [place], [place] Spouse-Sig Other Name - Tigist Barroso Spouse-Sig Other Occupation - Family Farm Spouse-Sig Other Phone No - [phone] Children Name(s) - Abhijit(13), Joe(15), Morris (20) PRIOR DELIVERY HISTORY DEL DATE GEST LAB WT LB WT OZ TYPE ANES LABOR TX 03 Mar 13 39 8 8 3 Vag Epidural No Dec 09 40 5 8 3 Vag Epidural No Jun 18 39 6 7 11 Vag None No ANTEPARTUM FLOW CHART VISIT GE RTC FU F F ID U U DATE WK MD WKS HT PN HR M SS BP ED WT ID GL D EF ST __ ____ ___ __ __ ___ __ __ __ ___ __ __ __ ___ __ Aug JMW 6 37 V + + 138/88 sl 233 tr - S Aug JMW 1 36 V + + 126/84 0 230 1+ - 1+ 50 -2 01 Aug JMW 2 34 + + 124/82 sl 226 - - Jul JMW 3 31 + + 112/76 223 - - 20 Jul 26 JMW 3 28 + + 118/76 0 220 - - 22 Jun 22 JMW 4 24 + + 120/68 0 216 - - 25 May 18 JMW 4 20 + + 124/80 0 209 - - 19 Apr 12 JM 5 15 - + O 118/64 0 200 ANTEPARTUM NOTE(S): Sep 19 2021: crampy, would like to set-up Induction Sep 12 2021: doing well Aug 29 2021: Ctxs-mild, Good FM Aug 08 2021: Good FM Jul 18 2021: Good FM and One Hr PG today Jun 20 2021: feeling well. Glucola given. AM May 23 2021: Sono Today,Feeling Well Apr 16 2021: COMPREHENSIVE ANTEPARTUM NOTE(S): Sep 19 2021: Induction scheduled for 09/27/21 at 0700 with questions answered and consents signed. Verbalized understanding to call at 0500 to verify room availability. I spoke with Magnolia KAY. ЕКАТЕРИНА Sep 17 2021: H taken to OB. tkg Sep 12 2021: Barbara is 36w6d she is here for PNV. positive movement no edema. GBS today and LARC consent signed. Doing well no complaints or concerns. BR Aug 08 2021: Malick here for 31 week PNV. FM and edema check good. Pt has no concern or complainants today doing well. Medications and allergy's are up to date. CB Jul 18 2021: Barbara here for PNV. FM good. Edema check good. Doing well. Glucose draw today. CB Apr 16 2021: Barbara taking Zofran 4 mg 2 x day. Vomits once a day. Denies constipation. Doing well on Fluoxetine 40 mg. Taking PNV. No flutters noted yet; she is aware she will likely feel FM sometime during the next 4 weeks. PN labs, GC, Chlamydia done last visit. Genetics questionnaire completed showing a 1st cousin w/Down's; declines genetics testing. Carlton questionnaire showing 3. kbm Apr 16 2021: 15wk, risk benefits alternatives of genetic screening discussed. Declines genetic and carrier screening. Still has nausea, using Zofran. Rx for Zofran sent. Mar 21 2021: TELEHEALTH NOB VISIT, 20 MINUTE DURATION. Barbara is a 30 year old with an YARELY of 10/04/2021, current GA is 11 w 6 d. [place] with he , Shon, and their three sons, ages 8, 6, and 7 months. 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 Past history updated. Barbara plans delivery at [facility], and she will breastfeed; an epidural is not planned. She i Mar 09 2021: Barbara is her with missed menses. Office and home UPT +. LMP unknown..Is still breastfeedling a 8mo old at home. . First 3 births were all vaginal without complications. Is experiencing nausea but no vomiting. Last PAP and WNL. There have been no changes in her health since last visit. Allergy and medication lists updated. LSS Mar 09 2021: ok REVIEW OF SYSTEMS: GENERAL - Denies fever, or chills SKIN - Denies rash, new skin lesions, or change in moles EYES - Denies blurred vision, or change in visual acuity EARS - Denies ear pain, or difficulty hearing NOSE - Denies nasal congestion, discharge, or bleeding MOUTH - Denies sore throat, or difficulty swallowing NECK - Denies pain or swelling RESPIRATORY - Denies shortness of breath, cough, wheezing CARDIOVASCULAR - Denies palpitations, chest pain, orthopnea, PND, peripheral edema, syncope or claudication GASTROINTESTINAL - Denies nausea, vomiting, diarrhea, constipation, Denies abdominal pain, melena and or bright red blood GENITOURINARY - Denies dysuria, frequency of urination, urgency, or hesitancy MUSCULOSKELETAL - Denies joint or muscle pain, or back pain NEUROLOGICAL - Denies localized numbness, weakness, or tingling PSYCHIATRIC - Denies depression, anxiety, substance abuse or suicide attempts ENDOCRINE - Denies heat or cold intolerance, weight loss or gain, increasing thirst HEMATO-IMMUNOLOGIC - Denies easy bruising, bleeding, oral ulcerations or recurrent infections GENETICS SCREENING: Age 35+ years: No Thalassemia: No Neural Tube Defect: No Down Syndrome: Yes Cousin GLEN-SACHS: No Sickle Cell Disease: No Hemophilia: No Musc. Dystrophy: No Cystic Fibrosis: No-declines screening [place] Chorea: No Mental Retardation: No Fragile X: No Other genetic: No Other defects: No SABs/still births: No Drugs since LMP: No INFECTION HISTORY: High risk AIDS: No High risk Hepatitis: No Exposed to TB: No Exposed to Herpes: No Rash/viral illness since LMP: No History of STD: No MENSTRUAL HISTORY: *Menses Amount/Duration: 5-6 DAYSMenses Regularity: RegularFrequency: monthlyMenarche (Age Onset): 13HCG+: 03/25/2012* PAST SUMMARY: PARITY: 1. Total Pregnancies............ 4 2. Full Term Pregnancies........ 3 3. Premature.................... 0 4. Abortions - Induced.......... 0 5. Abortions - Spontaneous...... 0 6. Ectopics..................... 0 7. Multiple Births.............. 0 8. Living Children.............. 3 PAST #1: Date of :.................. 12/04/12 Gestation Weeks:................ 40 Length of labor(hours):......... 5 Sex:............................ M Weight-lbs:............... 8 Weight-oz:................ 3 Type of Delivery:............... Vag Type of Anesthesia:............. Epidural Place of Delivery:.............. [facility] Treatment of Labor?:.... No Comment: IND. PAST #2: Date of :.................. 03/01/15 Gestation Weeks:................ 39 Length of labor(hours):......... 8 Sex:............................ M Weight-lbs:............... 8 Weight-oz:................ 3 Type of Delivery:............... Vag Type of Anesthesia:............. Epidural Place of Delivery:.............. [place] Treatment of Labor?:.... No Comment: IOL PAST #3: Date of :.................. 06/22/20 Gestation Weeks:................ 39 Length of labor(hours):......... 6 Sex:............................ M Weight-lbs:............... 7 Weight-oz:................ 11 Type of Delivery:............... Vag Type of Anesthesia:............. None Place of Delivery:.............. [place] Treatment of Labor?:.... No Comment: IOL PHYSICAL EXAMINATION General Appearence: 30 yo female in no acute distress Vital Signs: AF, VSS Heart: RRR without rubs or gallops Lungs: CTA x 2 Breasts: deferred Abdomen: gravid Pelvis: Cervix: 3/50 Presentation: cephalic Station: -2 Fetus: Size: AGA Movement: present Heart: present LAB TEST(S) ORDERED SINCE:01/07/21 09/27/2021 COVID 19 AG RAPID (RN COLLECT) 09/27/2021 CBC W/DIFF, AUTOMATED 09/14/2021 RULE OUT BETA STREP (GRP. B) 09/07/2021 (ROM) RUPTURE OF MEMBRANES 07/18/2021 GLUCOSE CHALLENGE GEST 1H 50G 07/18/2021 CBC-COMPLETE BLOOD CNT NO DIFF 03/12/2021 CHLAMYDIA/GC THERESE APTIMA 03/09/2021 URINALYSIS, ROUTINE (DIPSTICK) 03/09/2021 THYROID STIM HORMONE (TSH) 03/09/2021 RUBELLA IGG 03/09/2021 T AND S-NO CHARGE W/PNP 03/09/2021 L509.8000 03/09/2021 HIV - [facility] 03/09/2021 HEPATITIS C ANTIBODY 03/09/2021 HEPATITIS B SURFACE ANTIGEN 03/09/2021 CBC W/DIFF, AUTOMATED == ==== Order Observation Description Value Ref_Range A* Site == ==== COVID 19 AG RAP NOTE [facility] CBC W/DIFF, AUT NOTE [facility] CBC W/DIFF, AUT WBC 9.4 K/mm3 4.4-11.0 ML CBC W/DIFF, AUT RBC 3.72 M/mm3 4.2-5.4 L ML CBC W/DIFF, AUT HGB 12.1 g/dL 12.0-15.0 ML CBC W/DIFF, AUT HCT 35.6 37-47 L ML CBC W/DIFF, AUT MCV 95.7 fL 81-99 ML CBC W/DIFF, AUT MCH 32.5 pg 27.0-32.0 H ML CBC W/DIFF, AUT MCHC 34.0 g/dL 32-36 ML CBC W/DIFF, AUT RDW CV 12.7 11.6-14.6 ML CBC W/DIFF, AUT RDW SD 44.0 fl 35.1-43.9 H ML CBC W/DIFF, AUT PLT 128 K/mm3 150-450 L ML CBC W/DIFF, AUT MPV 14.3 fl 6.2-12.0 H ML CBC W/DIFF, AUT NEUT% 67.4 47-70 ML CBC W/DIFF, AUT LY% 25.4 19-41 ML CBC W/DIFF, AUT MONO% 5.9 0-10 ML CBC W/DIFF, AUT EO% 0.7 0-5 ML CBC W/DIFF, AUT BASO% 0.2 0-1 ML CBC W/DIFF, AUT IG% 0.400 0.0-0.9 ML IG% - Immature Granulocytes (promyelocytes, myelocytes and metamyelocytes) > 1% indicates that a LEFT SHIFT is Present. CBC W/DIFF, AUT ABSOLUTE NEUT 6.3 X10 3/uL 2.0-7.7 ML CBC W/DIFF, AUT ABSOLUTE LYMPH 2.38 X10 3/uL 0.83-4.51 ML CBC W/DIFF, AUT NUCLEATED RBC 0 0-5 ML RULE OUT BETA S NOTE [facility] (ROM) RUPTURE O NOTE [facility] (ROM) RUPTURE O ROM Negative Negative ML Amniotic fluid not present indicates No Rupture of Membranes at time of specimen collection. (ROM) RUPTURE O NOTE [facility] (ROM) RUPTURE O C-LINE PRESENT? Internal QC ML DUPLICATE ORDER (ROM) RUPTURE O ROM Negative ML DUPLICATE ORDER (ROM) RUPTURE O RECORD KIT LOT# ML DUPLICATE ORDER CBC-COMPLETE BL NOTE [facility] CBC-COMPLETE BL WBC 11.1 K/mm3 4.4-11.0 H ML CBC-COMPLETE BL RBC 3.46 M/mm3 4.2-5.4 L ML CBC-COMPLETE BL HGB 11.4 g/dL 12.0-15.0 L ML CBC-COMPLETE BL HCT 34.2 37-47 L ML CBC-COMPLETE BL MCV 98.8 fL 81-99 ML CBC-COMPLETE BL MCH 32.9 pg 27.0-32.0 H ML CBC-COMPLETE BL MCHC 33.3 g/dL 32-36 ML CBC-COMPLETE BL RDW CV 13.1 11.6-14.6 ML CBC-COMPLETE BL RDW SD 46.8 fl 35.1-43.9 H ML CBC-COMPLETE BL PLT 139 K/mm3 150-450 L ML CBC-COMPLETE BL MPV 13.3 fl 6.2-12.0 H ML GLUCOSE CHALLEN NOTE [facility] GLUCOSE CHALLEN GLU GEST 50G 1H 133 mg/dL 70-140 ML PN N [facility]~[address] [place], [address]~ T AND AB SCREEN GEL NEGATIVE ML HEPATITIS C ANT NOTE [facility] HEPATITIS C ANT HEPATITIS C AB Non-Reactive Nonreactive ML Non Reactive: < 0.8 Equivocal: >/= 0.8 to < 1.0 Reactive: >/= 1.0 The CDC recommends that a reactive/equivocal HCV antibody result be followed up by the HCV Nucleic Acid Amplification test ([id number]) HEPATITIS B ANTOINETTE NOTE [facility] HEPATITIS B ANTOINETTE HEP B SURF AG Non-Reactive Nonreactive ML HIV - [facility] NOTE [facility] HIV - [facility] HIV Non-Reactive Nonreactive ML L509.8000 NOTE [facility] L509.8000 SYPHILIS ABS Non-reactive ML RUBELLA IGG NOTE [facility] RUBELLA IGG RUBELLA IGG Reactive Nonreactive ML Antibody Results Interpretation of Immune Status Non Reactive Presumed Non-Immune Equivocal Equivocal Reactive Presumed Immune URINALYSIS, ROU NOTE [facility] URINALYSIS, ROU COLOR Yellow Yellow ML URINALYSIS, ROU URINE CLARITY Clear Clear ML URINALYSIS, ROU GLUCOSE, UR Normal mg/dl Normal ML URINALYSIS, ROU BILIRUBIN URINE Negative mg/dL Negative ML URINALYSIS, ROU KETONE UR Negative mg/dl Negative ML URINALYSIS, ROU SP.GR. DIPSTX 1.010 1.002-1.030 ML URINALYSIS, ROU PH UR 7.0 5.0 - 8.0 ML URINALYSIS, ROU PROT DIPSTX Negative mg/dl Negative ML URINALYSIS, ROU UROBILI Normal mg/dl Normal ML URINALYSIS, ROU NITRITE Negative Negative ML URINALYSIS, ROU OCCULT BLOOD-UR Negative /ul Negative ML URINALYSIS, ROU LEUK ESTERASE Negative /ul Negative ML THYROID STIM HO NOTE [facility] THYROID STIM HO TSH 2.33 uIU/mL 0.358-3.74 ML CBC W/DIFF, AUT NOTE [facility] CBC W/DIFF, AUT WBC 8.8 K/mm3 4.4-11.0 ML CBC W/DIFF, AUT RBC 3.96 M/mm3 4.2-5.4 L ML CBC W/DIFF, AUT HGB 12.7 g/dL 12.0-15.0 ML CBC W/DIFF, AUT HCT 37.5 37-47 ML CBC W/DIFF, AUT MCV 94.7 fL 81-99 ML CBC W/DIFF, AUT MCH 32.1 pg 27.0-32.0 H ML CBC W/DIFF, AUT MCHC 33.9 g/dL 32-36 ML CBC W/DIFF, AUT RDW CV 11.9 11.6-14.6 ML CBC W/DIFF, AUT RDW SD 41.3 fl 35.1-43.9 ML CBC W/DIFF, AUT PLT 182 K/mm3 150-450 ML CBC W/DIFF, AUT MPV 12.5 fl 6.2-12.0 H ML CBC W/DIFF, AUT NEUT% 68.3 47-70 ML CBC W/DIFF, AUT LY% 24.0 19-41 ML CBC W/DIFF, AUT MONO% 5.1 0-10 ML CBC W/DIFF, AUT EO% 1.7 0-5 ML CBC W/DIFF, AUT BASO% 0.7 0-1 ML CBC W/DIFF, AUT IG% 0.200 0.0-0.9 ML IG% - Immature Granulocytes (promyelocytes, myelocytes and metamyelocytes) > 1% indicates that a LEFT SHIFT is Present. CBC W/DIFF, AUT ABSOLUTE NEUT 6.0 X10 3/uL 2.0-7.7 ML CBC W/DIFF, AUT ABSOLUTE LYMPH 2.11 X10 3/uL 0.83-4.51 ML CBC W/DIFF, AUT NUCLEATED RBC 0 0-5 ML CHLAMYDIA/GC NA NOTE [facility] CHLAMYDIA/GC NA CHLAMY,NUC ACID Negative Negative LCI CHLAMYDIA/GC NA GC BY NUC ACID Negative Negative LCI Performed at: =[facility] [id number] Security Manager: Emilie Lala MD, Phone: [phone] *Negative results from patients with symptom onset beyond five days should be treated as presumptive and confirmed by a molecular assay if clinically necessary. Negative results should not be used as the sole basis for treatment or for patient management. COVID 19 AG RAPID (RN COLLECT) *Positive results do not differentiate between SARS-CoV and SARS-CoV-2. If differentation of the specific SARS virus is desired an additional sample and an additional order is required. COVID 19 AG RAPID (RN COLLECT) * This test has not been FDA cleared or approved; the test has been authorized by FDA under an Emergency Use Authorization (EAU) for use by laboratories certified under CLIA that meet the requirements to perform moderate, high, or waived complexity tests. COVID 19 AG RAPID (RN COLLECT) Normal Reference Range: Negative SARS-CoV-2 (COVID 19) Negative RAPID METHOD Quidel Jeannie Analyzer KATIA Group B Beta Streptococcus is not isolated. O POSITIVE == ==== Impression /Plan: 39 wks + 0 days intrauterine who presents for elective induction. AROM with clear fluid. Preparations in progress for delivery.
[2021-09-27] MEDS: Oxytocin 30 units/NS 500 ml 30 UNITS/500 ML IV.SOLN 334 UNITS IV (14:28)
--- NOTE | 2021-09-27 14:37 | EX.PCM.OBRPT ---
Maternal Data Information Final YARELY: 10/04/21 Gestational age: 39w0d Vaginal Delivery Maternal Presentation Maternal Presentation: Elective Induction Type of Induction: Pitocin and Amniotomy Operative Information Date of Procedure: 09/27/21 Pre-Operative Diagnosis: IUP Post-Operative Diagnosis: IUP Surgery / Procedure Performed: Spontaneous Vaginal Delivery Type of Anesthesia: None Estimated Blood Loss: 250 cc Findings Description of Procedure: Spontaneous vaginal delivery of a viable female with Apgars of 8/9 from an occiput anterior presentation with clear amniotic fluid and normal three-vessel placenta. No episiotomy or laceration. Sponges okay. Delivery physician: Tommie Doherty MD. Presentation: Vertex Amniotic Membrane Rupture Type: Artificial Amniotic Fluid Description: Clear Placental Delivery Description: Spontaneous Placenta Disposition: [facility] Cord Vessel Description: 3 Vessels Cord Entanglement: None A Gender: Female (1 minute): 8 (5 minute): 9 Post Vaginal Delivery Medications Given After Delivery: IV Pitocin Episiotomy Description: None Laceration: None Complication Complications: None
[2021-09-27] MEDS: Ibuprofen 600 MG Tablet PO (16:41)
[2021-09-28 00:53] VITALS: BP 134/47; PULSE 60; RESP 18
[2021-09-28 03:30] VITALS: BP 131/72; PULSE 63; RESP 18
--- NOTE | 2021-09-28 08:41 | PCM.PN.OB ---
Subjective Subjective No issues overnight. Doing well. OOB. Denies heavy lochia. No voiding difficulty. Objective Data Objective Data Vital Signs: Vital Signs Temp Pulse Resp BP Pulse Ox 97.6 F L 63 18 131/72 H 97 09/27/21 20:11 09/28/21 03:30 09/28/21 03:30 09/28/21 03:30 09/27/21 14:34 Oxygen Delivery Method Room Air Weight: 106.7 kg Body Mass Index (BMI) 37.3 Intake & Output: Intake and Output for Last 24 Hours 09/26/21 09/27/21 09/28/21 23:59 23:59 23:59 Intake Total 529.03 / 529.03 Output Total 200 / 200 Balance 329.03 / 329.03 Lab / Micro Data Result Diagrams: 09/27/21 07:40 Labs: Laboratory Results - last 24 hr 09/27/21 07:40: Blood Type O POSITIVE, Antibody Screen NEGATIVE Micro: Microbiology 09/27/21 08:00 Nasal Secretion SARS-CoV-2 Antigen (Rapid) - Final Physical Exam Const alert, oriented x3 and no apparent distress Resp normal respiratory effort and normal air movement Cardio regular rate, regular rhythm, S1 normal heart sound and S2 normal heart sound Uterus Palpation: uterus fundus firm and other OB fundus nontender Extremity no calf tenderness Neuro oriented x3 Assessment & Plan (1) (spontaneous vaginal delivery): PLAN: Rh positive d/c home
--- NOTE | 2021-09-28 08:43 | PCM.DC ---
Discharge Instructions Diet Discharge Diet: No restrictions Activity Discharge Activity: Return to Normal Activity May resume sexual activity in: 4-6 weeks Dressing / Incision Call your doctor if you observe: Fever of 101 or Higher, Using more than 1 pad per hour, Shortness of breath, Chest pain, Calf discomfort, Uncontrolled pain and - (Persistent or severe headache) Follow Up Care Please Follow Up With: Tommie Doherty MD When: 3 weeks for telehealth follow up 6 weeks for visit Test Results: Test results from this visit will be discussed in further detail at your follow-up appointment, if applicable. Discharge Plan Admission Admit Date/Time: 09/27/21 06:55 Primary Reason for Your Visit: Vaginal delivery Attending Provider: Tommie Doherty Primary Care Provider: Kavin Deras Discharge Orders/Prescriptions Prescriptions: New ibuprofen 600 mg Tablet 600 mg PO Q6H PRN PRN (Reason: Pain Score 1-3) Qty: 30 RF: 0 Continued Prenatabs FA 1 TABLET tablet 1 tab PO DAILY RF: 0 fluoxetine 20 mg capsule 40 mg PO DAILY RF: 0 Referrals / Follow Up: Kavin Deras MD [Primary Care Provider] -
[2021-09-28] MEDS: FLUoxetine 20 MG Capsule 40 MG PO (09:33)
[2021-09-28 10:00] VITALS: BP 132/62; PULSE 75; RESP 16; TEMP 36.5
[2021-09-28 12:00] VITALS: BP 134/78; PULSE 70; RESP 16; TEMP 36.6; O2SAT 98
--- NOTE | 2021-09-28 12:30 | CASEMGMT ---
Social Work Brief Assessment Labor and Delivery Unit Refer documentation below for further details. Date of Referral/Notification: 09/27/21 Reason for Referral: History PPD Date of Intervention: 09/28/21 Time of Intervention: 12:30 Informant: Medical record and mother of baby (MOB) Assessment: Met with MOB and Angel PEACOCK in room. Introduced role and reason for referral. MOB discussed history of post- depression with 3rd child who is now 14 months. ADALBERTO martinez also has an 8 and 6 year old at home. ADALBERTO martinez was started on Prozac after 3rd child and has continued with medication. MOB denies any history of counseling. ADALBERTO martinez has felt good throughout . MOB reports good support from family and /FOB. MOB denies any concerns for home going and has all needs met for baby. Discussed with nursing who denies any concerns. Plan: Home with resources provided No further needs requested or indicated. Jasmine Aguilar, PHYSICIAN PRIMARY CARE SPORTS MEDICINE, DUST COLLECTOR OPERATOR
[2021-09-28] MEDS: Ibuprofen 600 MG Tablet PO (13:01)
== END 2021-09-28 17:05 | disposition home or self-care (01) | DRG 807 ==
PROVIDERS: Admitting Provider Obstetrics & Gynecology; PCP Family Medicine; Visit Provider Obstetrics & Gynecology
DX: O99.344 Other mental disorders complicating childbirth (principal); F41.9 Anxiety disorder, unspecified; F32.A Depression, unspecified; Z37.0 Single live birth; Z23 Encounter for immunization; Z86.16 Personal history of COVID-19; Z3A.39 39 weeks gestation of pregnancy
CPT/HCPCS: 59025; 59050; 85025; 86850; 86900; 86901; 87426; 99218; J7120; 90686; G0378

== ENCOUNTER 2021-11-07 11:43 | Outpatient (CLI) | payer SELFPAY ==
[2021-11-12 19:08] LABS: HPV Reflexed? NOT INDICATED
== END 2021-11-07 23:59 | disposition home or self-care (01) ==
LOC: LABSPEC 11:44
PROVIDERS: PCP Family Medicine; Visit Provider Obstetrics & Gynecology
DX: Z12.4 Encounter for screening for malignant neoplasm of cervix (principal)
CPT/HCPCS: 88175; G0145

== ENCOUNTER → 2023-03-24 | Outpatient (CLI) | payer MEDICAID, SELFPAY ==
[2023-03-24 08:47] LABS: Absolute Neutrophil Count 3.8 X10^3/uL (2.0-7.7); Basophil# 0.07 X10^3/uL; Eosinophil# 0.18 X10^3/uL; Eosinophils% 2.6 % (0-5); Hematocrit 38.6 % (37-47); Hemoglobin 13.1 g/dL (12.0-15.0); Lymphocyte % 34.8 % (19-41); Mean Corp Hgb Conc 33.9 g/dL (32-36); Mean Corpuscular Hgb 32.6 pg (27.0-32.0); Mean Platelet Vol. 13.5 fl (6.2-12.0); Monocyte% 5.8 % (0-10); NRBC Flagged by Analyzer 0 % (0-5); Neutrophil # 3.84 X10^3/uL (2.7-7.7); Neutrophil % 55.7 % (47-70); Platelet Count 212 K/mm3 (150-450); RBC Distribution Width CV 12.2 % (11.6-14.6); Red Blood Count 4.02 M/mm3 (4.2-5.4); White Blood Count 6.9 K/mm3 (4.4-11.0)
[2023-03-24 09:14] LABS: Vitamin D,25 Hydroxy 50.4 ng/mL
[2023-03-24 09:21] LABS: AST(SGOT) 16 U/L (15-37); Alanine Aminotransfer ALT/SGPT 21 U/L (13-56); Albumin, Serum 3.8 g/dL (3.2-5.0); Alkaline Phosphatase 86 U/L (45-117); Anion Gap 4 (5-15); BUN 9 mg/dL (7-18); BUN/Creat Ratio 9.1 RATIO (10-20); Calcium,Total 8.6 mg/dL (8.5-10.1); Chloride 105 mmol/L (98-107); Cholesterol 167 mg/dL (200); Creatinine, Serum 0.99 mg/dL (0.55-1.02); EST Glomerular Filtration Rate 70 mL/min (>60); Est Glom Filt Rate - Afr Amer 84 mL/min (>60); Globulin 3.9 g/dL (2.2-4.2); Glucose 96 mg/dL (74-106); High Density Lipoprotein 48 mg/dL; Potassium 4.3 mmol/L (3.5-5.1); Protein, Total 7.7 g/dL (6.4-8.2); Sodium Level 135 mmol/L (136-145); Triglycerides 104 mg/dL; Very Low Density Lipoprotein 21 mg/dL (5-40)
[2023-03-24 09:23] LABS: Hemoglobin A1c 5.1 % (3.8-5.6)
== END | disposition home or self-care (01) ==
LOC: LAB 08:15
PROVIDERS: PCP Family Medicine; Referring Provider Obstetrics & Gynecology; Visit Provider Obstetrics & Gynecology
DX: Z13.21 Encounter for screening for nutritional disorder (principal); Z13.220 Encounter for screening for lipoid disorders; Z13.29 Encounter for screening for other suspected endocrine disorder; E66.9 Obesity, unspecified; Z68.32 Body mass index [BMI] 32.0-32.9, adult
CPT/HCPCS: 36415; 80053; 80061; 82306; 83036; 84443; 85025

== ENCOUNTER → 2024-05-08 | Outpatient (CLI) | payer MEDICAID, SELFPAY ==
[2024-05-08 11:13] LABS: Absolute Lymphocyte Count 2.75 X10^3/uL (0.83-4.51); Absolute Neutrophil Count 4.5 X10^3/uL (2.0-7.7); Basophil# 0.08 X10^3/uL; Eosinophil# 0.23 X10^3/uL; Eosinophils% 2.9 % (0-5); Hematocrit 38.6 % (37-47); Hemoglobin 12.8 g/dL (12.0-15.0); Lymphocyte # 2.75 X10^3/ul (0.83-4.51); Lymphocyte % 34.3 % (19-41); Mean Corp Hgb Conc 33.2 g/dL (32-36); Mean Corpuscular Hgb 31.6 pg (27.0-32.0); Mean Corpuscular Volume 95.3 fL (81-99); Mean Platelet Vol. 12.9 fl (6.2-12.0); Monocyte# 0.47 X10^3/uL; Monocyte% 5.9 % (0-10); NRBC Flagged by Analyzer 0 % (0-5); Neutrophil # 4.46 X10^3/uL (2.7-7.7); Neutrophil % 55.7 % (47-70); Platelet Count 204 K/mm3 (150-450); RBC Distribution Width CV 11.7 % (11.6-14.6); RBC Distribution Width SD 41.1 fl (35.1-43.9); Red Blood Count 4.05 M/mm3 (4.2-5.4)
[2024-05-08 11:49] LABS: Hemoglobin A1c 4.9 % (3.8-5.6)
[2024-05-08 11:50] LABS: ALB/GLOB Ratio 1.1 RATIO (0.9-2.4); AST(SGOT) 22 U/L (15-37); Alanine Aminotransfer ALT/SGPT 39 U/L (13-56); Albumin, Serum 3.9 g/dL (3.2-5.0); Alkaline Phosphatase 73 U/L (45-117); Anion Gap 3 (5-15); BUN 10 mg/dL (7-18); BUN/Creat Ratio 11.2 RATIO (10-20); Calcium,Total 8.8 mg/dL (8.5-10.1); Chloride 106 mmol/L (98-107); Cholesterol 157 mg/dL (200); Creatinine, Serum 0.89 mg/dL (0.55-1.02); EST Glomerular Filtration Rate 78 mL/min (>60); Est Glom Filt Rate - Afr Amer 94 mL/min (>60); Globulin 3.7 g/dL (2.2-4.2); Glucose 91 mg/dL (74-106); High Density Lipoprotein 51 mg/dL; Protein, Total 7.6 g/dL (6.4-8.2); Sodium Level 137 mmol/L (136-145); T4 Free Direct 0.91 ng/dL (0.76-1.46); Thyroid Stim Hormone (TSH) 2.16 uIU/mL (0.358-3.74); Triglycerides 72 mg/dL; Very Low Density Lipoprotein 14 mg/dL (5-40)
[2024-05-10 09:50] LABS: Vitamin D,25 Hydroxy 42.3 ng/mL
== END | disposition home or self-care (01) ==
PROVIDERS: PCP Family Medicine; Referring Provider Nurse Practitioner Family; Visit Provider Nurse Practitioner Family
DX: R63.5 Abnormal weight gain (principal)
CPT/HCPCS: 36415; 80053; 80061; 82306; 83036; 84439; 84443; 85025

== ENCOUNTER → 2024-12-14 | Outpatient (CLI) | payer MEDICAID, SELFPAY ==
--- NOTE | 2024-12-14 10:50 | US_ITS ---
PROCEDURE: HEAD/NECK SOFT TISSUE REASON FOR EXAM: Palpable lump in the posterior right lateral neck. COMPARISON: None. TECHNIQUE: Targeted ultrasound examination. FINDINGS: The palpable lump corresponds to a 1.4 cm x 0.9 cm x 0.4 cm benign-appearing lymph node. US/Head/Neck Soft Tissue IMPRESSION: The palpable lump corresponds to a 1.4 cm x 0.9 cm x 0.4 cm benign-appearing ly mph node. Reading Location: [place] [id number]
== END | disposition home or self-care (01) ==
LOC: US 10:48
PROVIDERS: PCP Family Medicine
DX: I89.0 Lymphedema, not elsewhere classified (principal)
CPT/HCPCS: 76536

== ENCOUNTER → 2025-05-16 | Outpatient (CLI) | payer MEDICAID, SELFPAY ==
[2025-05-16 11:21] LABS: Hematocrit 35.5 % (37-47); Hemoglobin 12.0 g/dL (12.0-15.0); Immature Granulocytes Count 0.010 X10^3/uL (0.0-0.0); Mean Corp Hgb Conc 33.8 g/dL (32-36); Mean Corpuscular Volume 94.4 fL (81-99); Mean Platelet Vol. 12.5 fl (6.2-12.0); NRBC Flagged by Analyzer 0 % (0-5); Platelet Count 218 K/mm3 (150-450); RBC Distribution Width CV 11.8 % (11.6-14.6); RBC Distribution Width SD 40.7 fl (35.1-43.9); Red Blood Count 3.76 M/mm3 (4.2-5.4); White Blood Count 6.9 K/mm3 (4.4-11.0)
[2025-05-16 12:37] LABS: AST(SGOT) 22 U/L (<=31); Alanine Aminotransfer ALT/SGPT 18 U/L (<=34); Albumin, Serum 4.2 g/dL (3.5-5.0); Alkaline Phosphatase 85 U/L (35-104); Anion Gap 10 (5-15); BUN 9 mg/dL (4-19); BUN/Creat Ratio 11.4 RATIO (10-20); Calcium,Total 8.9 mg/dL (7.6-11.0); Carbon Dioxide 24.0 mmol/L (21.0-32.0); Chloride 103 mmol/L (98-108); Cholesterol 179 mg/dL (<=200); Globulin 3.0 g/dL (2.2-4.2); Glucose 86 mg/dL (70-99); Low Density Lipoprotein Calc. 100 mg/dL; Potassium 4.3 mmol/L (3.3-5.1); Triglycerides 120 mg/dL; Very Low Density Lipoprotein 24 mg/dL (5-40); Vitamin D,25 Hydroxy 41.1 ng/mL (30-100); cholesterol:hdl ratio screen 3.27
--- OUTSIDE RECORDS SUMMARY | 2025-05-16 22:08 | XMS RPT_ITS | CCD ---
Author Organization [facility] Care Team Providers Care Senior Executive Assistant Name Role Phone Dr. Kavin Deras Primary Care Provider [phone] Dr. Kavin Deras Referring Provider Dr. Tracy Stephens Attending Provider [phone] Dr. Meliza Cotton Attending Provider ARLENE YOUSSEF Attending Unavailable REFERRED, SELF Referring Unavailable DOC, MISC Primary Care Unavailable Ranney, Christopher Primary Care Unavailable Ranney, Christopher Primary Care Unavailable Reol Katz Attending Unavailable Ranney, Christopher Referring Unavailable Meliza Cotton Attending Unavailable Ranney, Christopher Primary Care Unavailable Penny Anaya Attending Unavailable Ranney, Christopher Referring Unavailable Ranney, Christopher Primary Care Unavailable Ranney, Christopher Primary Care Unavailable McMorrow GOGGLES ASSEMBLER, Bassam Referring Unavailable McMorrow GOGGLES ASSEMBLER, Bassam Attending Unavailable McMorrow GOGGLES ASSEMBLER, Bassam Referring Unavailable McMorrow GOGGLES ASSEMBLER, Bassam Attending Unavailable Ranney, Christopher Primary Care Unavailable Anna Qureshi Attending Unavailable Ranney, Christopher Primary Care Unavailable Ranney, Christopher Primary Care Unavailable Meliza Cotton Attending Unavailable Ranney, Christopher Referring Unavailable Ranney, Christopher Primary Care Unavailable Sameer Rosales Attending Unavailable Ranney, Christopher Referring Unavailable Ranney, Christopher Primary Care Unavailable Meliza Cotton Attending Unavailable Ranney, Christopher Referring Unavailable Meliza Cotton Attending Unavailable Ranney, Christopher Referring Unavailable Ranney, Christopher Primary Care Unavailable Penny Anaya Attending Unavailable Ranney, Christopher Referring Unavailable Ranney, Christopher Primary Care Unavailable Anna Qureshi Attending Unavailable Ranney, Christopher Primary Care Unavailable Barkman, Penny Attending Unavailable David Deras Referring Unavailable David Deras Primary Care Unavailable Anna Qureshi Attending Unavailable David Deras Primary Care Unavailable Allergies Allergy Classification Reported Allergen(s) Allergy Type Date of Onset Reaction(s) Facility (1 source) Amoxicillin Drug Allergy 03-24-2023 Rash [facility] (1 source) Amoxicillin Drug Allergy 03-16-2025 [facility] Repository Medications Current Medications Medication Drug Class(es) Dates Sig (Normalized) Sig (Original) 24 hr buPROPion hydrochloride 150 mg extended release oral tablet (1 source) Aminoketone Start: 01-21-2023 take 1 tablet by mouth once daily in the morning Bupropion Hcl (Wellbutrin Xl) 150 mg tablet extended release 24 hr Active 150 MG PO EVERY MORNING January 21, 2023 12:00am escitalopram 20 mg oral tablet (1 source) Serotonin Reuptake Inhibitor Start: 01-21-2023 take 20 mg by mouth once daily Escitalopram Oxalate Active 20 MG PO DAILY January 21, 2023 12:00am Lactobacillus Combination No.4 (Probiotic) 3 billion cell capsule (1 source) Start: 01-21-2023 take 3 capsules by mouth once daily Lactobacillus Combination No.4 (Probiotic) 3 billion cell capsule Active 3000 MMU CELLS PO DAILY January 21, 2023 12:00am administer with a meal phentermine hydrochloride 37.5 mg oral tablet (3 sources) Sympathomimetic Amine Anorectic Start: 02-26-2023 End: 03-27-2023 take 1 tablet by mouth once daily 30 minutes after breakfast Phentermine (Adipex-P) 37.5 mg tablet Active 37.5 MG PO DAILY March 27, 2023 8:56am must administer 30 minutes before or 1-2 hours after breakfast BMI 34 Start: 01-21-2023 End: 02-20-2023 take 1 tablet by mouth once daily 30 minutes after breakfast Phentermine (Adipex-P) 37.5 mg tablet Discontinued 37.5 MG PO DAILY January 21, 2023 12:00am February 20, 2023 12:03am must administer 30 minutes before or 1-2 hours after breakfast BMI 34 spironolactone 100 mg oral tablet (1 source) Aldosterone Antagonist Start: 01-21-2023 take 100 mg by mouth once daily Spironolactone Active 100 MG PO DAILY January 21, 2023 12:00am Completed/Discontinued Medications Medication Drug Class(es) Dates Sig (Normalized) Sig (Original) FLUoxetine 20 mg oral capsule (1 source) Serotonin Reuptake Inhibitor Start: 09-07-2021 End: 01-21-2023 take 40 mg by mouth once daily Fluoxetine Discontinued 40 MG PO DAILY September 07, 2021 1:00am January 21, 2023 9:28am ibuprofen 600 mg oral tablet (1 source) Nonsteroidal Anti-inflammatory Drug Start: 09-28-2021 End: 01-21-2023 take 600 mg by mouth every six hours as needed Ibuprofen Discontinued 600 MG PO EVERY 6 HOURS NEEDED September 28, 2021 1:00am January 21, 2023 9:28am Vit,[id number] olic (Prenatabs Fa) 1 TABLET tablet (1 source) Start: 12-28-2014 End: 01-21-2023 take 1 tablet by mouth once daily Vit,[id number] lic (Prenatabs Fa) 1 TABLET tablet Discontinued 1 TABLET PO DAILY December 28, 2014 12:00am January 21, 2023 9:28am Problems Active Problems Problem Classification Problem Date Documented Da te Episodic/Chronic Anxiety disorders (1 source) Generalized anxiety disorder; Translations: [Generalized anxiety disorder] Onset: 01-04-2025 Chronic Mood disorders (1 source) Mood disorders; Translations: [Depression, unspecified] Onset: 01-04-2025 Other diseases of veins and lymphatics (2 sources) Lymphedema, not elsewhere classified; Translations: [Lymphedema, not elsewhere classified] Onset: 11-04-2024 Chronic Other nutritional; endocrine; and metabolic disorders (1 source) Body mass index 30+ - obesity; Translations: [Body mass index (BMI) 32.0-32.9, adult] 03-03-2023 Chronic Other nutritional; endocrine; and metabolic disorders (1 source) Obesity; Translations: [Obesity, unspecified] 03-03-2023 Chronic Other nutritional; endocrine; and metabolic disorders (2 sources) Obesity, unspecified; Translations: [Obesity, unspecified] 01-21-2023 Chronic Other nutritional; endocrine; and metabolic disorders (1 source) Body mass index (BMI) 32.0-32.9, adult; Translations: [Body Mass Index 32.0-32.9, adult] 02-25-2023 Chronic Other skin disorders (1 source) Acne; Translations: [Acne, unspecified] 01-21-2023 Episodic Past or Other Problems Problem Classification Problem Date Documented Da te Episodic/Chronic Other upper respiratory infections (1 source) Acute sinusitis, unspecified; Translations: [Acute sinusitis, unspecified] Onset: 10-28-2024 Episodic Results Test Name Value Interpretation Reference Range Facility MR/Rakesh 04-08-2025 MR/BMS [address], [address] [place] [address] OFFICE VISIT Date of Service: 04/08/25 MR#: [id number] Acct: [id number] Name: BARBARA BARROSO Rep #: [id number] : 1990 Provider: CAMELIA braun Age/Sex: 34/F Location: [facility] [place].BP Status: Signed Intake Vital Signs 02/15/25 11:30 03/16/25 09:18 04/08/25 08:09 Height 5 ft 7 in 5 ft 7 in 5 ft 7 in Weight: 199 lb 202 lb 8 oz BMI 31.1 31.7 BP 118/81 H 120/77 Blood Pressure Location Lt brachial Lt brachial Position Sitting Sitting Respiration 18 16 Pulse 70 78 Pulse Source Monitor Monitor BP Intake Visit Reasons: 6-8wfu Allergies amoxicillin Adverse Reaction (Verified 03/16/25 08:47) Rash PFSH Medical History Family history of hearing loss at age younger than 7 years depression Depression Anxiety Surgical History S/P appendectomy Family History Grandmother Breast cancer Social History Smoking Status: Never smoker alcohol intake: never substance use type: does not use caffeine: Yes what type of physical activity do you participate in: walking frequency: 5-6 times per week seatbelt use: always do you feel safe at home: Yes additional social history: -Dougie HPI History of Present Illness History provided by: patient Chief complaint: Anxiety HPI: Barbara Barroso is a 34 year old female patient presenting today for a follow up evaluation. 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 Reports she has been feeling much better since being more compliant with medication. Overall does feel good benefit from the medication. Feels a 60% improvements. Does continue to have some irritability. Denies panic attacks since last appointment. Denies recent feelings of depression. Denies SI/HI. Reports she has been waking up a few times per night but goes back to sleep easily. Has been occurring 2-3 weeks. Does not feel well rested. Has not been eating well and is eating easy food and less nutritious options. Has continued with adipex. Has not lost any weight. Previous similar episode: Yes Age of first onset of symptoms: 31-40 years Review of Systems Constitutional Reports: fatigue; Denies: fever(s), chills or change in weight Eyes Denies: change in vision or blurry vision Ears, Nose, Mouth, Throat Denies: throat pain or neck pain Cardiovascular Denies: chest pain, palpitations or dyspnea Respiratory Denies: dyspnea or wheezing Gastrointestinal Denies: abdominal pain, nausea, vomiting, diarrhea or constipation Genitourinary Denies: dysuria, urinary frequency or urinary urgency Musculoskeletal Denies: back pain or neck pain Integumentary/Breast Denies: rash, pruritus or erythema Neurological Denies: headache(s) Psychiatric Reports: anxiety, irritability and memory loss; Denies: mood swings, panic attacks, change in sleep pattern, hopelessness, loss of interest, paranoia, difficulty concentrating, visual hallucinations, auditory hallucinations, suicidal ideation or homicidal ideation Endocrine Reports: fatigue Hematologic/Lymphatic Reports: easy bruising Allergic/Immunologic Denies: wheezing Exam Mental Status Exam - Psych Appearance casually dressed, adequately groomed and no apparent distress Attitude cooperative and calm Activity/Motor Behavior MSE activity/motor behavior finding no adventitious movements and appropriate eye contact Speech regular rate, regular volume and regular prosody Mood euythmic Affect full range Thought Process linear, logical and coherent Thought Content no delusions and no hallucinations Suicidal Ideation none Homicidal Ideation none Attention impaired (per patient self report) Concentration impaired (per patient self report) Sensorium/Orientation awake, alert and oriented x3 Memory/Cognition impaired (per patient self report) Insight good Judgement good Exam Constitutional Common normals: no acute distress, average body habitus and patient oriented x3 General appearance: well developed Neuro Common normals: patient oriented x3 Speech: speech normal Gait (neuro): normal gait Psych Psychiatry clinicians, please identify where your Mental Status Exam is documented: Mental Status Exam documented in the separate MSE Assessment Plan Assessment Plan (1) HUMPHREY (generalized anxiety disorder): Problem Details: improved on buspar Plan: - Continue fluoxetine 20mg daily - Increase buspirone to 10mg BID (2) Depression: Qualifiers: Depression Type: unspecified Qualified Code(s): F32.A - Depression, unspecified Plan: - Continue fluoxetin (more content not included)... Normal [facility] Lawn Specialist Office Visit Reporton 03-16-2025 Lawn Specialist Office Visit Report [facility]'[address], [address] [place] [address] OFFICE VISIT Date of Service: 03/16/25 MR#: [id number] Acct: [id number] Name: BARBARA BARROSO Rep #: [id number] : 1990 Provider: CAMELIA Sepulveda Age/Sex: 34/F Location: [facility] [place] Status: Signed Intake Vital Signs 01/19/25 09:38 02/15/25 11:30 03/16/25 08:52 Height 5 ft 7 in 5 ft 7 in 5 ft 7 in Weight: 201 lb 4 oz BMI 31.5 BP 115/75 Blood Pressure Location Lt brachial Position Sitting Respiration 18 Pulse 70 Pulse Source Monitor Intake Visit Reasons: 8 WK WM F/U Package Dye Stand Loader Required: No Is patient in pain?: No Allergies amoxicillin Adverse Reaction (Verified 03/16/25 08:47) Rash Medications ???Medication ???Instructions ???Recorded ???Confirmed ???Type lactobacillus combination no.4 3 3,000 mmu cells PO DAILY 01/21/23 03/16/25 History billion cell capsule (Probiotic) fluoxetine 20 mg capsule (Prozac) 20 mg PO DAILY #30 caps 08/16/24 03/16/25 Rx spironolactone 50 mg tablet 50 mg PO QDAY 12/16/24 03/16/25 Hi story ondansetron 4 mg disintegrating 4 mg PO Q6H PRN nausea and 5 03/16/25 Rx tablet vomiting #30 tabs buspirone 7.5 mg tablet 7.5 mg PO BID #60 tabs 02/15/25 Rx phentermine 37.5 mg tablet 37.5 mg PO QDAY #30 tabs 03/09/25 03/16/25 Rx Last Menstrual Period: 04/17/23 Zika: Zika virus screening: Negative : No Have you fallen in the past year?: No PFSH PFSH Medical History Family history of hearing loss at age younger than 7 years depression Depression Anxiety Surgical History S/P appendectomy Family History Grandmother Breast cancer Social History Smoking Status: Never smoker alcohol intake: never substance use type: does not use caffeine: Yes what type of physical activity do you participate in: walking frequency: 5-6 times per week seatbelt use: always do you feel safe at home: Yes additional social history: -Dougie History 4 Elective abortions Hx Para 4 Spontaneous abortions Hx # Term Pregnancies Ectopic pregnancies Hx # Pregnancies Multiple births # of living children Past Pregnancies Del. Date Name GA/Weeks Outcome Route Bth Weight Gen Labor Lgth Anesthesia Del Locatn Provider FOB Unknown Abhijit Unknown Trimble Unknown Morris Unknown Brenda HPI 8 WK WM F/U Details: BARBARA BRAROSO is a 34 year old Female presenting for a weight management follow up; she reports she is doing great! Taking medications compliantly with no side effects noted. She reports she feels her clothes are fitting better and she feels she is in a good place. Would like to continue with current plan. Female Reproductive History Last Menstrual Period: 04/17/23 ROS Const Reports as per HPI, Denies difficulty sleeping, Denies excessive sweating, Denies fatigue (new onset severe) and Denies fever(s) Eyes Denies change in vision and Denies diplopia ENT Denies dizziness Card Denies chest pain, Denies dyspnea, Denies dyspnea on exertion, Denies palpitations and Denies rapid heart rate Resp Denies dyspnea and Denies dyspnea on exertion GI Reports as per HPI, Denies abdominal pain and Denies constipation Musc Denies numbness Neuro No confusion, No dizziness, No memory loss and No numbness Psych Reports anxiety (improved with buspar), Denies confusion, Reports depression (controlled on meds), Denies homicidal ideation, Denies memory loss, Denies mood swings and Denies suicidal ideation Endo Denies excessive sweating, Denies fatigue (new onset severe), Denies palpitations and Reports other (denies symptoms of hypoglycemia) Exam Const General: cooperative, healthy appearing, comfortable and no acute distress Orientation: alert HENMT Head: normal to inspection and normocephalic Eyes General: appearance normal, both eyes and all related structures Neck Neck: normal visual inspection, no lymphadenopathy and trachea midline Thyroid: thyroid normal Resp Effort Inspection: normal respiratory effort Auscultation: clear to auscultation bilaterally Cardio Rate: regular rate Heart Sounds: S1 normal and S2 normal Musc Other: gross motor intact no deficits, full bilateral strength Skin General: no rashes or lesions noted Neuro General: patient alert, patient awake and patient oriented x3 Motor: muscle tone normal throughout Extrem General: no pedal edema Psych Appearance: grossly normal Mental Status: mental status grossly normal (more content not included)... Normal [facility] MR/BMS.BPon 02-15-2025 MR/BMS.BP [facility] [address], [address] [place] [address] OFFICE VISIT Date of Service: 02/15/25 MR#: [id number] Acct: [id number] Name: BARBARA BARROSO Rep #: [id number] : 1990 Provider: CAMELIA braun Age/Sex: 34/F Location: [facility] [place].BP Status: Signed Intake Vital Signs 01/04/25 07:47 02/15/25 11:30 Height 5 ft 7 in 5 ft 7 in Weight: 197 lb 199 lb BMI 30.8 31.1 BP 125/79 H 118/81 H Blood Pressure Location Rt radial Lt brachial Position Sitting Sitting Respiration 16 18 Pulse 99 70 Pulse Source Monitor Monitor BP Intake Visit Reasons: 6 wk FU Allergies amoxicillin Adverse Reaction (Verified 01/19/25 09:38) Rash [facility] Medical History Family history of hearing loss at age younger than 7 years depression Depression Anxiety Surgical History S/P appendectomy Family History Grandmother Breast cancer Social History Smoking Status: Never smoker alcohol intake: never substance use type: does not use caffeine: Yes what type of physical activity do you participate in: walking frequency: 5-6 times per week seatbelt use: always do you feel safe at home: Yes additional social history: -Dougie HPI History of Present Illness History provided by: patient HPI: Barbara Barroso is a 34 year old female patient presenting today for a follow up evaluation. Reports since starting buspirone she has been feeling more tired than before. Has not been taking the medication BID consistently and is trying to work on remembering this. Reports feeling more tired daily but not necessarily every day. Has been waking up at 3 in the morning but is able to fall back to sleep easily. Is getting 7-8 hours per night. Most days feels well rested but not always. Does not feel anxiety has worsened but also doesn't feel like it has improved. Denies panic attacks. Denies current feelings of depression. Denies SI/HI. Admits to continuing to feel irritable and having mood swings. Appetite has been good and it working on maintaining a healthier diet. Has continued to take adipex. Previous similar episode: Yes Age of first onset of symptoms: 31-40 years Review of Systems Constitutional Reports: change in weight (loss); Denies: fever(s), chills or fatigue Eyes Denies: change in vision or blurry vision Ears, Nose, Mouth, Throat Denies: throat pain or neck pain Cardiovascular Denies: chest pain, palpitations or dyspnea Respiratory Denies: dyspnea or wheezing Gastrointestinal Denies: abdominal pain, nausea, vomiting, diarrhea or constipation Genitourinary Denies: dysuria, urinary frequency or urinary urgency Musculoskeletal Denies: back pain or neck pain Integumentary/Breast Denies: rash, pruritus or erythema Neurological Denies: headache(s) Psychiatric Reports: anxiety, mood swings, irritability, memory loss and difficulty concentrating; Denies: panic attacks, change in sleep pattern, hopelessness, loss of interest, paranoia, visual hallucinations, auditory hallucinations, suicidal ideation or homicidal ideation Endocrine Denies: fatigue Hematologic/Lymphatic Reports: easy bruising Allergic/Immunologic Denies: wheezing Exam Mental Status Exam - Psych Appearance casually dressed, adequately groomed and no apparent distress Attitude cooperative and calm Activity/Motor Behavior MSE activity/motor behavior finding no adventitious movements and appropriate eye contact Speech regular rate, regular volume and regular prosody Mood anxious Affect anxious Thought Process linear, logical and coherent Thought Content no delusions and no hallucinations Suicidal Ideation none Homicidal Ideation none Attention impaired (per patient self report) Concentration impaired (per patient self report) Sensorium/Orientation awake, alert and oriented x3 Memory/Cognition impaired (per patient self report) Insight good Judgement good Exam Constitutional Common normals: average body habitus and patient oriented x3 General appearance: well developed and anxious Neuro Common normals: patient oriented x3 Speech: speech normal Gait (neuro): normal gait Psych Psychiatry clinicians, please identify where your Mental Status Exam is documented: Mental Status Exam documented in the separate MSE Assessment Plan Assessment Plan (1) HUMPHREY (generalized anxiety disorder): Plan: - Continue fluoxetine 20mg daily - Increase buspirone to 7.5mg BID and continue to work on compliance with medication dosing (2) Depression: Qualifiers: Depression Type: unspecified Qualified Code(s): F32.A - Depression, unsp (more content not included)... Normal [facility] Lawn Specialist Office Visit Reporton 01-19-2025 Lawn Specialist Office Visit Report [facility] [address], [address] [place] [address] OFFICE VISIT Date of Service: 01/19/25 MR#: [id number] Acct: [id number] Name: BARBARA BARROSO Rep #: [id number] : 1990 Provider: CAMELIA Sepulveda Age/Sex: 34/F Location: [facility] [place] Status: Signed Intake Vital Signs 12/16/24 09:22 01/04/25 07:47 01/19/25 09:38 Height 5 ft 7 in 5 ft 7 in 5 ft 7 in Weight: 201 lb BMI 31.4 BP 126/83 H Blood Pressure Location Rt radial Position Sitting Respiration 16 Pulse 87 Pulse Source Monitor Intake Visit Reasons: 1 M WM Package Dye Stand Loader Required: No Is patient in pain?: No Allergies amoxicillin Adverse Reaction (Verified 01/19/25 09:38) Rash Medications ???Medication ???Instructions ???Recorded ???Confirmed ???Type lactobacillus combination no.4 3 3,000 mmu cells PO DAILY 01/21/23 01/19/25 History billion cell capsule (Probiotic) fluoxetine 20 mg capsule (Prozac) 20 mg PO DAILY #30 caps 08/16/24 01/19/25 Rx spironolactone 50 mg tablet 50 mg PO QDAY 12/16/24 01/19/25 Hi story buspirone 5 mg tablet 5 mg PO BID #60 tabs 01/04/2512/29 Rx ondansetron 4 mg disintegrating 4 mg PO Q6H PRN nausea and 5 01/19/25 Rx tablet vomiting #30 tabs phentermine 37.5 mg tablet 37.5 mg PO QDAY 01/19/25 01/19/25 History Last Menstrual Period: 04/17/23 PFSH PFSH Medical History Family history of hearing loss at age younger than 7 years depression Depression Anxiety Surgical History S/P appendectomy Family History Grandmother Breast cancer Social History Smoking Status: Never smoker alcohol intake: never substance use type: does not use caffeine: Yes what type of physical activity do you participate in: walking frequency: 5-6 times per week seatbelt use: always do you feel safe at home: Yes additional social history: -Dougie History 4 Elective abortions Hx Para 4 Spontaneous abortions Hx # Term Pregnancies Ectopic pregnancies Hx # Pregnancies Multiple births # of living children Past Pregnancies Del. Date Name GA/Weeks Outcome Route Bth Weight Gen Labor Lgth Anesthesia Del Locatn Provider FOB Unknown Abhijit Unknown Trimble Unknown Morris Unknown milton HPI 1 M Details: BARBARA BARROSO is a 34 year old Female presenting for a weight management follow up; she is doing well. Taking medication compliantly and denies side effects; she recent was seen by psych and started on buspar. Had some nausea with this but this is improving as well. She has been getting more steps in at the [employer]-invested in a weighted vest. Female Reproductive History Last Menstrual Period: 04/17/23 ROS Const Reports as per HPI, Denies difficulty sleeping, Denies excessive sweating, Denies fatigue (new onset severe) and Denies fever(s) Eyes Denies change in vision and Denies diplopia ENT Denies dizziness Card Denies chest pain, Denies dyspnea, Denies dyspnea on exertion, Denies palpitations and Denies rapid heart rate Resp Denies dyspnea and Denies dyspnea on exertion GI Reports as per HPI, Denies abdominal pain and Denies constipation Musc Denies numbness Neuro No confusion, No dizziness, No memory loss and No numbness Psych Reports anxiety (improved with buspar), Denies confusion, Reports depression (controlled on meds), Denies homicidal ideation, Denies memory loss, Denies mood swings and Denies suicidal ideation Endo Denies excessive sweating, Denies fatigue (new onset severe), Denies palpitations and Reports other (denies symptoms of hypoglycemia) Exam Const General: cooperative, healthy appearing, comfortable and no acute distress Orientation: alert [facility] Head: normal to inspection and normocephalic Eyes General: appearance normal, both eyes and all related structures Neck Neck: normal visual inspection, no lymphadenopathy and trachea midline Thyroid: thyroid normal Resp Effort Inspection: normal respiratory effort Auscultation: clear to auscultation bilaterally Cardio Rate: regular rate Heart Sounds: S1 normal and S2 normal Musc Other: gross motor intact no deficits, full bilateral strength Skin General: no rashes or lesions noted Neuro General: patient alert, patient awake and patient oriented x3 Motor: muscle tone normal throughout Extrem General: no pedal edema Psych Appearance: grossly normal Mental Status: mental status grossly normal Affect: normal affect Speech and Movement: speech and movement normal Atti (more content not included)... Normal [facility] MR/BMSAlannaBPon 01-04-2025 MR/BMS. [facility] [address], [address] [place] [address] OFFICE VISIT Date of Service: 01/04/25 MR#: [id number] Acct: [id number] Name: BARBARA BARROSO Rep #: [id number] : 1990 Provider: CAMELIA braun Age/Sex: 34/F Location: [facility] [place].[facility] Status: Signed Intake Vital Signs 11/15/24 11:37 12/16/24 09:22 01/04/25 07:47 Height 5 ft 7 in 5 ft 7 in 5 ft 7 in Weight: 197 lb BMI 30.8 BP 125/79 H Blood Pressure Location Rt radial Position Sitting Respiration 16 Pulse 99 Pulse Source Monitor BP Intake Visit Reasons: Depression Accompanied by: Self Allergies amoxicillin Adverse Reaction (Verified 01/04/25 07:53) Rash Medications ???Medication ???Instructions ???Recorded ???Confirmed ???Type lactobacillus combination no.4 3 3,000 mmu cells PO DAILY 01/21/23 01/04/25 History billion cell capsule (Probiotic) fluoxetine 20 mg capsule (Prozac) 20 mg PO DAILY #30 caps 08/16/24 01/04/25 Rx phentermine 37.5 mg tablet 37.5 mg PO QDAY #30 tabs 12/16/24 01/04/25 Rx (Adipex-P) spironolactone 50 mg tablet 50 mg PO QDAY 12/16/24 01/04/25 Hi story buspirone 5 mg tablet 5 mg PO BID #60 tabs 01/04/2505/23 Rx PFSH Medical History Family history of hearing loss at age younger than 7 years depression Depression Anxiety Surgical History S/P appendectomy Family History Grandmother Breast cancer Social History Smoking Status: Never smoker alcohol intake: never substance use type: does not use caffeine: Yes what type of physical activity do you participate in: walking frequency: 5-6 times per week seatbelt use: always do you feel safe at home: Yes additional social history: -Dougie HPI History of Present Illness History provided by: patient Chief complaint: Anxiety HPI: Barbara Barroso is a 34 year old female patient presenting today for an intake evaluation. Sleep: Denies sleep issues. 6-7 hours per night. Does nap daily. Admits to recently feeling fatigued. Interest: Depression comes and goes. Enjoys playing with her children and going shopping. Energy: Admits to lack of motivation. Admits to a lack of energy. Does feel well rested in the morning. Guilt: Admits to sometimes feelings of worthlessness. Sometimes feelings of guilt. Denies feelings of hopelessness. Concentration: Admits to concerns with focus, concentration, and inattention. Did have an IEP in school for these concerns. Admits to being easily distracted. Denies making careless mistakes. Pays attention to small details. Does report times where she struggles in listening when being spoke to directly. Is able to follow instructions. Does report having a lot of unfinished tasks. Denies difficulties organizing tasks and activities. Denies putting off tasks that take more mental effort. Denies interrupting others. Appetite: Appetite is good. Is currently taking adipex in hopes of losing weight. Psychomotor: WNL Suicide: Denies SI/HI. Memory: Admits to misplacing frequently used items. Admits to feeling forgetful. Short and senior living memory intact. Anxiety: Admits to feelings of anxiety 70% of the time. Does have anxiety with no reason behind the anxiety. Does feel random things in her day make anxiety worse, not having help with her children, and being overwhelmed. Denies panic attacks. Does have a good support system with family being close and is able to get things done when her children are with family and she can get things together. Obsessions: Denies Compulsions: Denies Marissa: Denies symptoms of marissa. PTSD: Denies physical, emotional, or sexual trauma. Psychosis: Denies AVH. Denies paranoia. 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 [employer] Living Status: with spouse and 4 children Legal Issues: Denies Family: Parents are Children: 4 children (12, 9, 4, 3) Psychiatric History Previous psychiatric treatment history: No Previous psychiatric diagnoses: Depression, Anxiety Previous psychiatric treatment programs: none Family Psychiatric History: Mother- depression maternal grandmother- depression Suicidal Ideation Current: No Past: No History of suicide attempt: No Suicide Risk Assessment Suicide risk factors: none Suicide protective factors: future looking, responsibility for family, family support, social support and enga (more content not included)... Normal [facility] Lawn Specialist Office Visit Reporton 12-16-2024 Lawn Specialist Office Visit Report [facility] [address], [address] [place] [address] OFFICE VISIT Date of Service: 12/16/24 MR#: [id number] Acct: [id number] Name: BARBARA BARROSO Rep #: [id number] : 1990 Provider: CAMELIA Sepulveda Age/Sex: 33/F Location: [facility] [place] Status: Signed Intake Vital Signs 11/15/24 11:37 12/16/24 09:19 12/16/24 09:22 Height 5 ft 7 in 5 ft 7 in 5 ft 7 in Weight: 198 lb 6 oz BMI 31.0 BP 130/85 H Pulse 56 L Intake Visit Reasons: 1 M WM F/U Package Dye Stand Loader Required: No Is patient in pain?: No Allergies amoxicillin Adverse Reaction (Verified 12/16/24 09:19) Rash Medications ???Medication ???Instructions ???Recorded ???Confirmed ???Type lactobacillus combination no.4 3 3,000 mmu cells PO DAILY 01/21/23 12/16/24 History billion cell capsule (Probiotic) fluoxetine 20 mg capsule (Prozac) 20 mg PO DAILY #30 caps 08/16/24 12/16/24 Rx phentermine 37.5 mg tablet 37.5 mg PO QDAY #30 tabs 12/16/24 Rx (Adipex-P) spironolactone 50 mg tablet 50 mg PO QDAY 12/16/24 12/16/24 Hi story Last Menstrual Period: 04/17/23 PFSH PFSH Medical History Family history of hearing loss at age younger than 7 years depression Depression Anxiety Surgical History S/P appendectomy Family History Grandmother Breast cancer Social History Smoking Status: Never smoker alcohol intake: never substance use type: does not use caffeine: Yes what type of physical activity do you participate in: walking frequency: 5-6 times per week seatbelt use: always do you feel safe at home: Yes additional social history: -Dougie History 4 Elective abortions Hx Para 4 Spontaneous abortions Hx # Term Pregnancies Ectopic pregnancies Hx # Pregnancies Multiple births # of living children Past Pregnancies Del. Date Name GA/Weeks Outcome Route Bth Weight Infant Gen Labor Lgth Anesthesia Del Locatn Provider FOB Unknown Abhijit Unknown Trimble Unknown Morris Unknown Raeland HPI 1 M WM F/U Details: BARBARA BARROSO is a 33 year old Female presenting for a weight management follow up; she is down 6 pounds. Feeling well. Taking 1/2 tab phen with no associated side effects. Taking medication compliantly. Continues with depression however stable and not worse with starting phentermine. Has appt with psych in December. Taking prozac compliantly. Female Reproductive History Last Menstrual Period: 04/17/23 ROS Const Reports as per HPI, Denies difficulty sleeping, Denies excessive sweating, Denies fatigue (new onset severe) and Denies fever(s) Eyes Denies change in vision and Denies diplopia ENT Denies dizziness Card Denies chest pain, Denies dyspnea, Denies dyspnea on exertion, Denies palpitations and Denies rapid heart rate Resp Denies dyspnea and Denies dyspnea on exertion GI Reports as per HPI, Denies abdominal pain and Denies constipation Musc Denies numbness Neuro No confusion, No dizziness, No memory loss and No numbness Psych Denies confusion, Reports depression (controlled on meds), Denies homicidal ideation, Denies memory loss, Denies mood swings and Denies suicidal ideation Endo Denies excessive sweating, Denies fatigue (new onset severe), Denies palpitations and Reports other (denies symptoms of hypoglycemia) Exam Const General: cooperative, healthy appearing, comfortable and no acute distress Orientation: alert HENMT Head: normal to inspection and normocephalic Eyes General: appearance normal, both eyes and all related structures Neck Neck: normal visual inspection, no lymphadenopathy and trachea midline Thyroid: thyroid normal Resp Effort Inspection: normal respiratory effort Auscultation: clear to auscultation bilaterally Cardio Rate: regular rate Heart Sounds: S1 normal and S2 normal Musc Other: gross motor intact no deficits, full bilateral strength Skin General: no rashes or lesions noted Neuro General: patient alert, patient awake and patient oriented x3 Motor: muscle tone normal throughout Extrem General: no pedal edema Psych Appearance: grossly normal Mental Status: mental status grossly normal Affect: normal affect Speech and Movement: speech and movement normal Attitude: cooperative Thought Process: normal Assessment and Plan Assessment and Plan (1) Depression: Status: Acute Comment: referral to psych for refractory symptoms Plan: Back on Prozac; Doing well with lifestyle modifications but will see psych in December. (2) Dysmenorrhea: Status: Acute (more content not included)... Normal [facility] Head/Neck Soft Tissueon - Head/Neck Soft Tissue [facility] [address] [place] [address] Head/Neck Soft Tissue MR#: [id number] Acct: [id number] Name: BARBARA BARROSO Rep #: [id number] : 1990 F 33 From: Rudolph shea MD PCP: Dr. David Deras MD Status: REG CLI Study: Head/Neck Soft Tissue Date of Exam: 12/14/24 Exam# [id number] Ordering Dr: Bassam Nova GOGGLES ASSEMBLER GOGGLES ASSEMBLER -C PROCEDURE: HEAD/NECK SOFT TISSUE REASON FOR EXAM: Palpable lump in the posterior right lateral neck. COMPARISON: None. TECHNIQUE: Targeted ultrasound examination. FINDINGS: The palpable lump corresponds to a 1.4 cm x 0.9 cm x 0.4 cm benign-appearing lymph node. US/Head/Neck Soft Tissue IMPRESSION: The palpable lump corresponds to a 1.4 cm x 0.9 cm x 0.4 cm benign-appearing lymph node. Reading Location: [place] [address] CC: Bassam CAMARILLOC McMorrow; Dr. 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 Meliza crouch MD Age/Sex: 33/F Location: [facility] [place] Status: Signed Intake Vital Signs 08/16/24 11:39 11/15/24 11:32 11/16/24 06:37 Height 5 ft 7 in 5 ft 7 in 5 ft 7 in Weight: 206 lb BMI 32.2 BP 118/75 127/85 H Pulse 78 Intake Visit Reasons: 3 M F/U Chief Complaint: 2 Week F/u Package Dye Stand Loader Required: No Is patient in pain?: No Feel stressed/tense/nervous /anxious/difficulty sleeping: very much (anxiety - feels like med change did not work) Allergies amoxicillin Adverse Reaction (Verified 11/15/24 11:37) Rash Medications ???Medication ???Instructions ???Recorded ???Confirmed ???Type lactobacillus combination no.4 3 3,000 mmu cells PO DAILY 01/21/23 11/15/24 History billion cell capsule (Probiotic) fluoxetine 20 mg capsule (Prozac) 20 mg PO DAILY #30 caps 08/16/24 11/15/24 Rx phentermine 37.5 mg tablet 18.75 mg (1/2 x 37.5 mg) PO QDAY 0 11/16/24 11/16/24 Rx (Adipex-P) #16 tabs Last Menstrual Period: 04/17/23 Zika: Zika virus screening: Negative : No Have you fallen in the past year?: No PFSH PFSH Medical History Family history of hearing loss at age younger than 7 years depression Depression Anxiety Surgical History S/P appendectomy Family History Grandmother Breast cancer Social History Smoking Status: Never smoker alcohol intake: never substance use type: does not use caffeine: Yes what type of physical activity do you participate in: walking frequency: 5-6 times per week seatbelt use: always do you feel safe at home: Yes additional social history: -Dougie History 4 Elective abortions Hx Para 4 Spontaneous abortions Hx # Term Pregnancies Ectopic pregnancies Hx # Pregnancies Multiple births # of living children Past Pregnancies Del. Date Name GA/Weeks Outcome Route Bth Weight Gen Labor Lgth Anesthesia Del Locatn Provider FOB Unknown Abhijit Unknown Trimble Unknown Morris Unknown Brenda HPI 3 M F/U Details: BARBARA BARROSO is a 33 year old Female presenting for a weight management follow-up. She has had continual weight gain she stopped the Topamax and is not on any medication therapy and her weight has continued to increase. Her BMI is now 32. She has tried eating healthier and watch her portion sizes but it is not resulting in weight loss. Her mood symptoms have also continued to deteriorate the Prozac is not helping. She has failed multiple SSRI agents and has refractory depression. Female Reproductive History Last Menstrual Period: 04/17/23 ROS Const Reports as per HPI, Denies difficulty sleeping, Denies excessive sweating, Denies fatigue (new onset severe) and Denies fever(s) Eyes Denies change in vision and Denies diplopia ENT Denies dizziness Card Denies chest pain, Denies dyspnea, Denies dyspnea on exertion, Denies palpitations and Denies rapid heart rate Resp Denies dyspnea and Denies dyspnea on exertion GI Reports as per HPI, Denies abdominal pain and Denies constipation Musc Denies numbness Neuro No confusion, No dizziness, No memory loss and No numbness Psych Denies confusion, Denies depression, Denies memory loss, Denies mood swings and Denies suicidal ideation Endo Denies excessive sweating, Denies fatigue (new onset severe), Denies palpitations and Reports other (denies symptoms of hypoglycemia) Exam Const General: cooperative, healthy appearing, comfortable and no acute distress Orientation: alert [facility] Head: normal to inspection and normocephalic Eyes General: appearance normal, both eyes and all related structures Neck Neck: normal visual inspection, no lymphadenopathy and trachea midline Thyroid: thyroid normal Resp Effort Inspection: normal respiratory effort Auscultation: clear to auscultation bilaterally Cardio Rate: regular rate Heart Sounds: S1 normal and S2 normal Musc Other: gross motor intact no deficits, full bilateral strength Skin General: no rashes or lesions noted Neuro General: patient alert, patient awake and patient oriented x3 Motor: muscle tone normal throughout Extrem General: no pedal edema Psych Appearance: grossly normal Mental Status: mental status grossly normal Affect: normal affect Speech and Movement: speech and movement normal Attitude: co (more content not included)... Normal [facility] Office Visit Reporton 2023 Office Visit Report [facility] [address] [place] [address] OFFICE VISIT Date of Service: 09/28/24 MR#: [id number] Acct: [id number] Patient: BARBARA BARROSO Rep #: [id number] : 1990 Provider: YUNG Browning Age/Sex: 33/F [place] [facility] [place]: Signed Intake Vital Signs 08/16/24 11:39 Height 1.7 m Intake Visit Reasons: Sinus Pressure/Post Nasal Drip Chief Complaint: sinus pressure Allergies amoxicillin Adverse Reaction (Verified 08/16/24 11:42) Rash PFSH Medical History Family history of hearing loss at age younger than 7 years depression Depression Anxiety Surgical History S/P appendectomy Family History Grandmother Breast cancer Social History Smoking Status: Never smoker alcohol intake: never substance use type: does not use caffeine: Yes what type of physical activity do you participate in: walking frequency: 5-6 times per week seatbelt use: always do you feel safe at home: Yes additional social history: -Dougie HPI HPI Chief Complaint: sinus pressure Details: BARBARA BARROSO, is a 33 F who presents to virtual visit today for sinus pressure. this began about 4 days ago. She has increased maxillary pressure, drainage, sore throat, cough. Today she felt warm. No chills/body ache. No SOB. She has been taking pseudophed and mucinex OTC with minimal improvement. She states she frequently gets sinus infections and that is what this feels like. ROS Const Constitutional: No body ache, chills, fatigue or fever(s) ENT ENT: Positive for nasal congestion, sinus pressure, post nasal drip and sore throat; No ear or mastoid pain Resp Respiratory: Positive for cough; No shortness of breath or wheezing Gastro GI: No diarrhea, nausea/dyspepsia or vomiting Endo Endocrine: No fatigue Aller/Imm Allergy/Immunologic: No wheezing Exam Const General: cooperative, healthy appearing, comfortable, no acute distress, well developed and well groomed Nutritional Appearance: average body habitus and well nourished Orientation: alert, awake and oriented x3 HENMT Head: normocephalic and atraumatic Face and sinus: sinus tenderness maxillary Resp Effort Inspection: normal respiratory effort, able to speak in complete sentences, symmetric chest movement and no cough Coding Level of Care Code Off vis,est,level 3 Diagnoses Acute sinusitis J01.90 Assessment and Plan Assessment and Plan (1) Acute sinusitis: Status: Acute Plan: allergic to pcn. start azithromycin, continue pseudophed and mucinex prn, add flonase prn. follow up 1 week if no improvement Disclaimer: This visit was performed virtually via live audio and video at the request of the patient. As such the physical exam and testing is limited by what is able to be seen through the patient's camera and lighting which may vary in quality, and limited by what the patient is able to perform via clinician instruction. If there is no significant improvement or new complications, the patient should follow up [id number] with a clinician of the appropriate level of care. Medications: New azithromycin (Zithromax Z-Ketan) take 500 mg today (day 1), then 250 mg for 4 days (days 2-5) PO 6 tabs 0RF 09/28/24 1128 Date Roel Aundrea Blue Signature: Date (if applicable) CC: Normal [facility] Lawn Specialist Office Visit Reporton 08-16-2024 Lawn Specialist Office Visit Report [facility] [address], [address] [place] [address] OFFICE VISIT Date of Service: 08/16/24 MR#: [id number] Acct: [id number] Name: BARBARA BARROSO Rep #: [id number] : 1990 Provider: Dr. Meliza crouch MD Age/Sex: 33/F Location: [facility] [place] Status: Signed Intake Vital Signs 05/14/24 08:26 08/11/24 17:18 08/16/24 11:39 Height 5 ft 7 in 5 ft 7 in 5 ft 7 in Weight: 198 lb 2 oz BMI 31.0 BP 119/80 Pulse 58 L Intake Visit Reasons: 3 M FU Chief Complaint: 2 Week F/u Package Dye Stand Loader Required: No Is patient in pain?: No Feel stressed/tense/nervous /anxious/difficulty sleeping: very much (anxiety - feels like med change did not work) Allergies amoxicillin Adverse Reaction (Verified 08/16/24 11:42) Rash Medications ???Medication ???Instructions ???Recorded ???Confirmed ???Type lactobacillus combination no.4 3 3,000 mmu cells PO DAILY 01/21/23 08/16/24 History billion cell capsule (Probiotic) fluoxetine 20 mg capsule (Prozac) 20 mg PO DAILY #30 caps 08/16/24 08/16/24 Rx phentermine 37.5 mg tablet 18.75 mg (1/2 x 37.5 mg) PO QDAY 08/16/24 08/16/24 Rx (Adipex-P) #16 tabs topiramate 25 mg tablet (Topamax) 25 mg PO BID #60 tabs 08/16/24 08/16/24 Rx Last Menstrual Period: 04/17/23 Zika: Zika virus screening: Negative : No Have you fallen in the past year?: No PFSH PFSH Medical History Family history of hearing loss at age younger than 7 years depression Depression Anxiety Surgical History S/P appendectomy Family History Grandmother Breast cancer Social History Smoking Status: Never smoker alcohol intake: never substance use type: does not use caffeine: Yes what type of physical activity do you participate in: walking frequency: 5-6 times per week seatbelt use: always do you feel safe at home: Yes additional social history: -Dougie History 4 Elective abortions Hx Para 4 Spontaneous abortions Hx # Term Pregnancies Ectopic pregnancies Hx # Pregnancies Multiple births # of living children Past Pregnancies Del. Date Name GA/Weeks Outcome Route Bth Weight Infant Gen Labor Lgth Anesthesia Del Locatn Provider FOB Unknown Abhijit Unknown Trimble Unknown Morris Unknown Brenda HPI 3 M FU Details: BARBARA BARROSO is a 33 year old Female presenting for a weight management follow up. still working on mood and energy. She feels like she still struggles with irritability. She feels good about her appetite level and is staying busy with daily activity and getting in steps but formal exercise. She does not track but overall eats healthy and eats a lot of fruits and vegetables lean proteins whole grains. Female Reproductive History Last Menstrual Period: 04/17/23 ROS Const Reports as per HPI, Denies difficulty sleeping, Denies excessive sweating, Denies fatigue (new onset severe) and Denies fever(s) Eyes Denies change in vision and Denies diplopia ENT Denies dizziness Card Denies chest pain, Denies dyspnea, Denies dyspnea on exertion, Denies palpitations and Denies rapid heart rate Resp Denies dyspnea and Denies dyspnea on exertion GI Reports as per HPI, Denies abdominal pain and Denies constipation Musc Denies numbness Neuro No confusion, No dizziness, No memory loss and No numbness Psych Denies confusion, Denies depression, Denies memory loss, Denies mood swings and Denies suicidal ideation Endo Denies excessive sweating, Denies fatigue (new onset severe), Denies palpitations and Reports other (denies symptoms of hypoglycemia) Exam Const General: cooperative, healthy appearing, comfortable and no acute distress Orientation: alert [facility] Head: normal to inspection and normocephalic Eyes General: appearance normal, both eyes and all related structures Neck Neck: normal visual inspection, no lymphadenopathy and trachea midline Thyroid: thyroid normal Resp Effort Inspection: normal respiratory effort Auscultation: clear to auscultation bilaterally Cardio Rate: regular rate Heart Sounds: S1 normal and S2 normal Musc Other: gross motor intact no deficits, full bilateral strength Skin General: no rashes or lesions noted Neuro General: patient alert, patient awake and patient oriented x3 Motor: muscle tone normal throughout Extrem General: no pedal edema Psych Appearance: grossly normal Mental Status: mental status grossly normal Affect: normal affect Speech and Movement: speech and movement normal Attitude: cooperative (more content not included)... Normal [facility] Urgent Care Visit Reporton 1 10-11-2023 Urgent Care Visit Report [facility] [address], [address] [place] [address] OFFICE VISIT Date of Service: 08/11/24 MR#: [id number] Acct: [id number] Name: BARABRA BARROSO Rep #: [id number] : 1990 Provider: YUNG Berg Age/Sex: 33/F Location: [facility] [place] Status: Signed Intake Vital Signs 05/14/24 08:26 08/11/24 17:18 Height 5 ft 7 in 5 ft 7 in Weight: 199 lb 6 oz BMI 31.2 BP 122/80 H Blood Pressure Location Lt brachial Position Sitting Respiration 16 Pulse 90 Pulse Source NIBP Temp 99.2 F H Temp Source Oral Pulse Oximetry (%) 97 Oxygen Delivery Method room air Intake Visit Reasons: CONCERN FOR SINUS INFECTION Chief Complaint: face/eye/ear pain, [place] Package Dye Stand Loader Required: No Is patient in pain?: Yes Allergies amoxicillin Adverse Reaction (Verified 08/11/24 17:20) Rash Medications ???Medication ???Instructions ???Recorded ???Confirmed ???Type lactobacillus combination no.4 3 3,000 mmu cells PO DAILY 01/21/23 08/11/24 History billion cell capsule (Probiotic) fluoxetine 20 mg capsule (Prozac) 20 mg PO DAILY #30 caps 05/14/24 08/11/24 Rx azithromycin 250 mg tablet See Rx Instructions PO .COMPLEX #6 08/11/24 08/11/24 Rx tabs Is last menstrual period known: No Post menopausal: No Patient : No Have you fallen in the past year?: No Nurse's Note: [place], face/ear/eye pain x 3 days without resolve. pt hx sinus infections 2-3 times per year and feels same. denies fever, mucus, ST, cough. declines viral testing. PFSH Medical History Family history of hearing loss at age younger than 7 years depression Depression Anxiety Surgical History S/P appendectomy Family History Grandmother Breast cancer Social History Smoking Status: Never smoker alcohol intake: never substance use type: does not use caffeine: Yes what type of physical activity do you participate in: walking frequency: 5-6 times per week seatbelt use: always do you feel safe at home: Yes additional social history: -Dougie HPI HPI Chief Complaint: face/eye/ear pain, [place] Details: BARBARA BARROSO, is a 33 F who presents to the office today for initial evaluation at the [facility] for approximately 3-day history of progressively worsening facial pressure/congestion with purulent postnasal drip/cough and bilateral ear pressure. No complaints of fever, chills, myalgias, fatigue, runny nose, or nausea/vomiting/diarrh ea. No complaints of chest pain/shortness of breath/dyspnea on exertion. No close contacts with similar complaints. No other associated symptoms and no other alleviating/aggravatin g factors. ROS Const Constitutional: No other (as above) Exam Const General: cooperative, healthy appearing and no acute distress Orientation: alert, awake and oriented x3 HENMT Head: normal to inspection Ears: hearing grossly normal bilaterally, external ears normal, TM's normal bilaterally and EAC's normal Nose: external nose normal, nares normal, septum normal and no nasal discharge Face and sinus: normal facial exam, R>L maxillary sinus palpable tender (w/ bilateral maxillary fullness to palpation) and face symmetric Mouth: oral mucosae normal, lip normal, tongue normal and oropharynx normal Throat: posterior oropharynx normal, tonsils normal, uvula midline and postnasal drainage (Purulent) Eyes General: appearance normal, both eyes and all related structures Neck Neck: normal visual inspection, full ROM, no meningeal signs, supple and lymphadenopathy (Bilateral anterior cervical lymph node swelling/tender to palpation) Neck mass: No Thyroid: thyroid normal Chest Chest palpation inspection: normal inspection of the chest Resp Effort Inspection: normal respiratory effort and able to speak in complete sentences Auscultation: Bilateral: Clear to Auscultation Cardio Palpation: normal PMI Rate: regular rate Rhythm: regular rhythm Heart Sounds: S1 normal, S2 normal, no gallops, no murmurs and no rubs Pulses: radial pulses present GI Inspection: normal to inspection Skin General: no rashes or lesions noted Neuro General: patient alert, patient awake and patient oriented x3 Cognition: normal cognition Speech: speech normal Psych Appearance: grossly normal Mental Status: mental status grossly normal Mood: congruent mood Affect: normal affect Speech and Movement: speech and movement normal Attitude: cooperative Diagnoses Acute maxillary sinusitis, unspecified J01.00 Assessment and Plan Assessment and Plan (1) Acute maxillary sinusitis, unspecified: Status: A (more content not included)... Normal [facility] Lawn Specialist Office Visit Reporton 05-14-2024 Lawn Specialist Office Visit Report [facility] [address], [address] [place] [address] OFFICE VISIT Date of Service: 05/14/24 MR#: [id number] Acct: [id number] Name: BARBARA BARROSO Rep #: [id number] : 1990 Provider: Dr. 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 Meliza Cotton MD) Family history of hearing loss at age younger than 7 years depression Depression Anxiety Surgical History S/P appendectomy Family History Grandmother Breast cancer Social History Smoking Status: Never smoker alcohol intake: never substance use type: does not use caffeine: Yes what type of physical activity do you participate in: walking frequency: 5-6 times per week seatbelt use: always do you feel safe at home: Yes additional social history: -Dougie History 4 Elective abortions Hx Para 4 Spontaneous abortions Hx # Term Pregnancies Ectopic pregnancies Hx # Pregnancies Multiple births # of living children Past Pregnancies Del. Date Name GA/Weeks Outcome Route Bth Weight Infant Gen Labor Lgth Anesthesia Del Locatn Provider FOB Unknown Abhijit Unknown Trimble Unknown Morris Unknown eland HPI Encounter for routine gynecological examination Details: BARBARA BARROSO is a 33 year old who presents for annual exam. further weight loss, having some increase in mood symptoms Last PAP: 2021 History of abnormal PAP: no severe Other preventative health care screenings: [place], does not see annually Female Reproductive History Cycle Length: 21-35 Bleeding Duration: 5 Questions: metorrhagia: No, sexually active: Yes, dyspareunia: No and PCB: No Menopausal Symptoms: No hot flashes, No night sweats, No weight change, No mood changes, No difficulty concentrating, No sleep problems and No change in libido ROS Const Constitutional: Reports as per HPI; Denies fatigue, increased appetite, poor appetite, night sweats, weight gain or weight loss Cardio Card: Denies chest pain Resp Resp: Denies cough or dyspnea GI GI: Reports as per HPI; Denies abdominal pain, bloating, constipation, nausea or vomiting : Reports as per HPI and other; Denies difficulty voiding, dysuria, hematuria, hot flashes, nipple discharge, pelvic pain, prolapse symptoms, urinary frequency, urinary incontinence, urinary urgency, vaginal discharge, vaginal dryness, vaginal odor or vaginal pruritus Skin Skin/Breast: Denies changing lesions, breast mass, breast pain, breast skin changes or nipple discharge Psych Psych: Reports depression; Denies anxiety, change in libido or difficulty concentrating Exam Const General: cooperative, healthy appearing, comfortable, no acute distress, well developed and well groomed HENMT Head: normal to inspection and normocephalic Ears: hearing grossly normal bilaterally and external ears normal Nose: external nose normal Face and sinus: normal facial exam Neck Neck: normal visual inspection, full ROM and no lymphadenopathy Thyroid: thyroid normal Chest Chest palpation inspection: normal inspection of the chest Breast inspection: normal inspection of the breasts and normal inspection of the axillae Breast palpation: normal palpation of the breasts, normal palpation of the axillae and no axillary lymphadenopathy Resp Effort Inspection: normal respiratory effort GI Inspection: normal to inspection and non-distended Palpation: soft, no hepatosplenomegaly and no guarding General: bladder normal to palpation External Female Exam: normal external appearance, normal appearance of the urethra and no lesions Urethra: normal appearance of the urethra and normal palpation Speculum Exam - Vagina: normal appearance of the vagina and (more content not included)... Normal [facility] Absolute lymphocyte countOrd ered By: Meliza Cotton on 03-24-2023 Lymphocytes Auto (Unsp spec) [#/Vol] 2.40 10*3/uL 0.83-4.51 [facility] Basophil percentageOrdered B y: Meliza Cotton on 03-24-2023 Basophils/100 WBC (Bld) 1.0 % 0-1 [facility] Bilirubin [Mass/Vol] 0.70 mg/dL 0.20-1.00 [facility] Comment on above: For patients on eltr ombopag therapy, use of Dimension Ware TBIL is not recommended. Chloride [Moles/Vol] 105 mmol/L 98-107 [facility] Cholesterol [Mass/Vol] 167 mg/dL <200 [facility] Comment on above: <200 mg/dL Desirable 200-240 mg/dL Borderline >240 mg/dL High Risk Eosinophils/100 WBC (Bld) 2.6 % 0-5 [facility] Glucose [Mass/Vol] 96 mg/dL 74-106 [facility] Neutrophils (Bld) [#/Vol] 3.8 10*3/uL 2.0-7.7 [facility] Neutrophils/100 WBC (Bld) 55.7 % 47-70 [facility] Potassium [Moles/Vol] 4.3 mmol/L 3.5-5.1 [facility] Protein [Mass/Vol] 7.7 g/dL 6.4-8.2 [facility] Sodium [Moles/Vol] 135 mmol/L 136-145 [facility] Triglyceride [Mass/Vol] 104 mg/dL <199 [facility] Comment on above: The drugs N-Acetylcy steine and Metamizole may falsely depress this assay.Serum Triglycerides Reference Interval Normal <150 mg/dL Borderline high 150 - 199 mg/dL High 200 - 499 mg/dL Very High > or = 500 mg/dL WBC (Bld) [#/Vol] 6.9 10*3/uL 4.4-11.0 [facility] Blood erythrocytes count (nu mber/volume)Ordered By: Meliza Cotton on 03-24-2023 RBC (Bld) [#/Vol] 4.02 10*6/uL 4.2-5.4 [facility] Blood hemoglobin measurement (mass/volume)Ordered By: Meliza Cotton on 03-24-2023 Hemoglobin (Bld) [Mass/Vol] 13.1 g/dL 12.0-15.0 [facility] Blood lymphocytes/100 leukoc ytesOrdered By: Meliza Cotton on 03-24-2023 Lymphocytes/100 WBC (Bld) 34.8 % 19-41 [facility] Blood monocytes/100 leukocyt esOrdered By: Meliza Cotton on 03-24-2023 Monocytes/100 WBC (Bld) 5.8 % 0-10 [facility] Blood platelet mean volumeOr dered By: Meliza Cotton on 03-24-2023 Platelet mean volume (Bld) [Entitic vol] 13.5 fL 6.2-12.0 [facility] Determination of erythrocyte mean corpuscular volume (MCV)Ordered By: Meliza Cotton on 03-24-2023 MCV (RBC) [Entitic vol] 96.0 fL 81-99 [facility] Hematocrit Auto (Bld) [Volum e fraction]Ordered By: Meliza Cotton on 03-24-2023 Hematocrit (Bld) [Volume fraction] 38.6 % 37-47 [facility] - Chemistry and C hemistry - challengeOrdered By: Meliza Cotton on 03-24-2023 ALP [Catalytic activity/Vol] 86 U/L 45-117 [facility] ALT [Catalytic activity/Vol] 21 U/L 13-56 [facility] CO2 [Moles/Vol] 26.0 mmol/L 21.0-32.0 [facility] Globulin (S) [Mass/Vol] 3.9 g/dL 2.2-4.2 [facility] Urea nitrogen/Creatinine [Mass ratio] 9.1 mg/mg 10-20 [facility] - Hematology and Cell countsOrdered By: Meliza Cotton on 03-24-2023 Erythrocyte distribution width (RBC) [Entitic vol] 43.0 fL 35.1-43.9 [facility] Erythrocyte distribution width (RBC) [Ratio] 12.2 % 11.6-14.6 [facility] Immature granulocytes/100 WBC (Bld) 0.100 % 0.0-0.9 [facility] Comment on above: IG% - Immature Granu locytes (promyelocytes, myelocytes and metamyelocytes) > 1% indicates that a LEFT SHIFT is Present. MCH (RBC) [Entitic mass] 32.6 pg 27.0-32.0 [facility] Nucleated RBC/100 WBC (Bld) [Ratio] 0 % 0-5 [facility] MCHC Auto (RBC) [Mass/Vol]Or dered By: Meliza Cotton on 03-24-2023 MCHC (RBC) [Mass/Vol] 33.9 g/dL 32-36 [facility] No Panel InformationOrdered By: Meliza Cotton on 03-24-2023 Estimated GFR (MDRD) Amer 84 mL/min >60 [facility] Comment on above: GFR Calc Estimated GFR (MDRD) Non-Af Amer 70 mL/min >60 [facility] Comment on above: Non- GFR Calc Thyroid Stimulating Hormone (TSH) 1.70 uIU/mL 0.358-3.74 [facility] Vitamin D 25-Hydroxy 50.4 ng/mL [facility] Comment on above: Vitamin D 25(OH) Sta tus Range Deficiency <20 ng/mL (50nmol/L) Insufficiency 20 - 30 ng/mL (50 - 75 nmol/L) Sufficiency 30 - 100 ng/mL (75 - 250 nmol/L) Toxicity >100 ng/mL (>250 nmol/L) Platelets bldOrdered By: Spencer Cotton on 03-24-2023 Platelets (Bld) [#/Vol] 212 10*3/uL 150-450 [facility] Serum or plasma albumin verónica urement (mass/volume)Ordered By: Meliza Cotton on 03-24-2023 Albumin [Mass/Vol] 3.8 g/dL 3.2-5.0 [facility] Serum or plasma albumin/glob ulin mass ratioOrdered By: Meliza Cotton on 03-24-2023 Albumin/Globulin [Mass ratio] 1.0 {ratio} 0.9-2.4 [facility] Serum or plasma calcium verónica urement (mass/volume)Ordered By: Meliza Cotton on 03-24-2023 Calcium [Mass/Vol] 8.6 mg/dL 8.5-10.1 [facility] Serum or plasma cholesterol in HDL measurement (mass/volume)Ordered By: Meliza Cotton on 03-24-2023 Cholesterol in HDL [Mass/Vol] 48 mg/dL >40 [facility] Comment on above: The drugs N-Acetylcy steine and Metamizole may falsely depress this assay. Reference Range HDL <40 mg/dL Low HDL Cholesterol HDL >or= 60 mg/dL High HDL Cholesterol Serum or plasma cholesterol in VLDL measurement (mass/volume)Ordered By: Meliza Cotton on 03-24-2023 Cholesterol in VLDL [Mass/Vol] 21 mg/dL 5-40 [facility] Serum or plasma creatinine m easurement (mass/volume)Ordered By: Meliza Cotton on 03-24-2023 Creatinine [Mass/Vol] 0.99 mg/dL 0.55-1.02 [facility] Comment on above: The validity of the calculated GFR & GFRAA in patients over 70 years has not been determined. Clinical correlation is essential. Serum or plasma low density lipoprotein (LDL) cholesterol measurement (mass/volume)Ordered By: Meliza Cotton on 03-24-2023 Cholesterol in LDL [Mass/Vol] 98 mg/dL 0-130 [facility] Serum or plasma urea nitroge n measurement (mass/volume)Ordered By: Meliza Cotton on 03-24-2023 Urea nitrogen [Mass/Vol] 9 mg/dL 7-18 [facility] Thin prep Papanicolaou smear with manual screeningOrdered By: Meliza Cotton on 03-24-2023 Thin prep Papanicolaou smear with manual screening 16 U/L 15-37 [facility] Thin prep Papanicolaou smear with manual screening 4 5-15 [facility] Whole blood hemoglobin A1c/t otal hemoglobin ratio (mass fraction)Ordered By: Meliza Cotton on 03-24-2023 HbA1c (Bld) [Mass fraction] 5.1 % 3.8-5.6 [facility] Comment on above: Normal < 5.7 % Predi abetic 5.7 - 6.4 % Diabetic >or= 6.5 % Please note range changes. Vital Signs Date Time Vital Sign Value Performing Clinician Lopez glez 03-24-2023 08:42-0400 Body height 170.[address] Kavin Deras Work Phone: [facility] 03-24-2023 08:42-0400 Body mass index (BMI) [Ratio] 31.3 kg/m2 Dr. Kavin Deras Work Phone: [facility] 03-24-2023 08:42-0400 Body weight 90.[address] Kavin Deras Work Phone: [facility] 03-24-2023 08:42-0400 Diastolic blood pressure 68 mm[Hg] Dr. Kavin Deras Work Phone: 1(120)893-571015 [place] [address] 03-24-2023 08:42-0400 Heart rate 85 /min Dr. Kavin Deras Work Phone: 8(587)128-446615 [place] [address] 03-24-2023 08:42-0400 Systolic blood pressure 104 mm[Hg] Dr. Kavin Deras Work Phone: 6(099)519-215010 [place] [address] 02-25-2023 16:58-0400 Body mass index (BMI) [Ratio] 32.2 kg/m2 Dr. Kavin Deras Work Phone: 0(409)078-139510 [place] [address] 02-25-2023 16:58-0400 Body weight 93.[address] Kavin Deras Work Phone: 3(251)321-851846 [address] 02-25-2023 16:58-0400 Diastolic blood pressure 65 mm[Hg] Dr. Kavin Deras Work Phone: 9(108)425-043310 [place] [address] 02-25-2023 16:58-0400 Systolic blood pressure 102 mm[Hg] Dr. Kavin Deras Work Phone: 3(112)990-920010 [place] [address] 01-21-2023 09:27-0400 Body mass index (BMI) [Ratio] 34 kg/m2 Dr. Kavin Deras Work Phone: 2(059)769-559715 [place] [address] 01-21-2023 09:27-0400 Body weight 98.[address] Kavin Deras Work Phone: 7(201)183-527810 [place] [address] 01-21-2023 09:27-0400 Diastolic blood pressure 73 mm[Hg] Dr. Kavin Deras Work Phone: 5(181)252-129146 [address] 01-21-2023 09:27-0400 Systolic blood pressure 115 mm[Hg] Dr. Kavin Deras Work Phone: 4(255)640-411815 [place] [address] Encounters Encounter Date Encounter Type Care Provider Facility Start: 05-16-2025 ambulatory David Deras [facility] Start: 04-08-2025 End: 04-08-2025 ambulatory Anna Qureshi Facility:[facility] Start: 03-16-2025 End: 03-16-2025 ambulatory Penny Anaya Facility:[facility] Start: 02-15-2025 End: 02-15-2025 ambulatory Anna Qureshi Facility:[facility] Start: 01-19-2025 End: 01-19-2025 ambulatory Penny Anaya Facility:[facility] Start: 01-04-2025 End: 01-04-2025 ambulatory Anna Qureshi [facility] Start: 12-16-2024 End: 12-16-2024 ambulatory Penny Anaya [facility] Start: 12-14-2024 End: 12-14-2024 ambulatory Bassam Antoniodiaz SEVERINO Facility:[facility] Start: 11-15-2024 End: 11-15-2024 ambulatory Meliza Cotton Facility:[facility] Start: 11-08-2024 ambulatory David Deras Faci lity:[facility] Start: 09-28-2024 End: 09-28-2024 ambulatory David Deras Facility:[facility] Start: 08-16-2024 End: 08-16-2024 ambulatory David Deras Facility:[facility] Start: 08-11-2024 End: 08-11-2024 ambulatory David Deras [facility] Start: 08-11-2024 End: 08-25-2024 ambulatory David Deras Facility:[facility] Start: 07-14-2024 ambulatory ARLENE [facility] Start: 05-14-2024 End: 05-14-2024 ambulatory David Deras Facility:[facility] Start: 03-24-2023 End: 03-24-[address] Kavin Deras Work Phone: [facility] Work Phone: Start: 03-24-2023 End: 03-24-[address] Kavin Deras Work Phone: [facility] Work Phone: Start: 02-25-2023 End: 02-25-[address] Kavin Deras Work Phone: [facility] Work Phone: Start: 01-21-2023 End: 01-21-[address] Kavin Deras Work Phone: [facility] Work Phone: Immunizations Immunization Date Immunization Notes Care Provider [facility] 09-28-2021 influenza, seasonal, injectable Dr. Kavin Deras Work Phone: [facility] 06-23-2020 influenza, seasonal, injectable Dr. Kavin Deras Work Phone: [facility] Payers Date Payer Category Payer Unknown [id number] 2024 Self-pay [id number] 2023 Unknown [id number] 2014 Private Health Insurance [facility] [id number] 1990 Unknown [id number] Medicaid MEDICAID [id number] Private Health Insurance [facility] *DONOT[employer] [id number] Unknown [facility] [employer] [id number] Unknown [id number] 62 Unknown [id number] 62 Unknown [id number] 62 Unknown [id number] 62 Unknown [id number] 62 Unknown [id number] [id number] 62 Unknown [id number] 2.16.840.1.764938.3.579.2.4 62 Unknown [id number] 2.16.840.1.435965.3.579.2.4 62 Unknown [id number] 2.16.840.1.674473.3.579.2.4 62 Unknown [id number] 2.16.840.1.733456.3.579.2.4 62 Unknown [id number] 2.16.840.1.278242.3.579.2.4 62 Unknown [id number] 2.16.840.1.882043.3.579.2.4 62 Unknown [id number] 2.16.840.1.387884.3.579.2.4 62 Unknown [id number] 2.16.840.1.645552.3.579.2.4 62 Unknown [id number] 2.16.840.1.170589.3.579.2.4 62 Social History Date Type Detail Facility Start: 03-24-2023 Tobacco smoking stat [facility] Unknown if ever smoked [facility] Start: 1990 Sex Assigned At Female [facility] Evaluation note Note Date & Type Note Facility Evaluation note Diagnosis Onset Date Obesity acute Encounter for routine gyneco logical examination noneactive BMI 32.0-32.9,adult acute Obesity acute [facility] Work Phone: Chief Complaint and Reason for Visit 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 Susu Dove MD Family Provider Active Dr. Kavin Deras MD Primary Care Provider Activ e Team Status: Inactive Member Role Status Dates Dr. Kavin Deras MD Primary Care Provider, Refe rring Provider Active Dr. Tracy Stephens DO Attending Provider Activ e Team Status: Inactive Member Role Status Dates Dr. Kavin Deras MD Primary Care Provider, Refe rring Provider Active Dr. Meliza Cotton MD Attending Provider Active Team Status: Inactive Member Role Status Dates Dr. Kavin Deras MD Primary Care Provider Activ e Dr. Meliza Cotton MD Attending Provider, Referr ing Provider Active Goals (unrecognized section and content) Goals may be documented in a n alternate section INFORMATION SOURCE (unrecogn ized section and content) DATE CREATED AUTHOR 07/17/2024 [facility] DATE CREATED AUTHOR AUTHOR'S ORGANIZ ATION 05/12/2025 [facility] FOR RECORDS PERTAINING TO PATIENTS WHO ARE OR HAVE BEEN ENROLLED IN A CHEMICAL DEPENDENCY/SUBSTANCEABUSE PROGRAM, SOME INFORMATION MAY BE OMITTED. This clinical summary was aggregated from multiple sources. Caution should be exercised in using it in the provision of clinical care. This summary normalizes information from multiple sources, and as a consequence, information in this document may materially change the coding, format and clinical context of patient data. In addition, data may be omitted in some cases. CLINICAL DECISIONS SHOULD BE BASED ON THE PRIMARY CLINICAL RECORDS. [employer] provides no warranty or guarantee of the accuracy or completeness of information in this document.
[2025-05-20 08:09] LABS: HPV APTIMA, High Risk Negative (Negative)
== END | disposition home or self-care (01) ==
LOC: LAB 10:45
PROVIDERS: Obstetrics & Gynecology; PCP Family Medicine; Referring Provider Nurse Practitioner Family; Visit Provider Nurse Practitioner Family
DX: Z13.220 Encounter for screening for lipoid disorders (principal); E66.9 Obesity, unspecified; Z13.29 Encounter for screening for other suspected endocrine disorder; Z12.4 Encounter for screening for malignant neoplasm of cervix
CPT/HCPCS: 36415; 80053; 80061; 82306; 84439; 84443; 85025; 87624; 88175; G0145